=== PATIENT | female | born 1980 | race Caucasian/White ===

== ENCOUNTER 2018-01-06 22:40 | Emergency (ER) | payer BC ==
[2018-01-07 00:42] LABS: Absolute Lymphocytes (CBC) 2.1 K/uL (0.7-4.9); Absolute Monocytes 0.5 K/uL (0.1-1.3); Absolute Neutrophil 4.2 K/uL (1.8-8.0); Basophils % 0.9 % (0-1.3); Eosinophils % 3.1 % (0-4.4); Hematocrit 37.3 % (36.0-45.0); Lymphocytes % 29.6 % (15.3-44.8); MCH 24.3 pg (27.0-35.0); MCV 74.6 fL (80-100); MPV 8.3 fL (7.6-11.3); Monocytes % 6.7 % (3.3-12.3); RBC Red Blood Cell Count 4.99 M/uL (3.86-4.86)
[2018-01-07 00:55] LABS: Potassium 3.6 mEq/L (3.6-5.0)
[2018-01-07 00:58] LABS: Albumin 4.5 g/dL (3.2-5.5); Bilirubin Total 0.5 mg/dL (0.3-1.2); Protein, Total 7.8 g/dL (6.0-8.3)
[2018-01-07] MEDS ORDERED: ONDANSETRON 4 MG/2 ML VIAL ONE (01:18)
[2018-01-07] MEDS ORDERED: KETOROLAC 30 MG/ML INJ ONE (01:18)
[2018-01-07] MEDS ORDERED: NA CHLORIDE 0.9% 1,000 ML ONE (01:18)
[2018-01-07 01:19] LABS: Barbiturates NEGATIVE; Benzodiazepines NEGATIVE; Cocaine NEGATIVE; METHAMPHETAM NEGATIVE; Opiates NEGATIVE; Phencyclidine NEGATIVE; THC Cannibis NEGATIVE
[2018-01-07] MEDS ORDERED: CEFTRIAXONE/SWI 1gm 1 GM/10 ML SYR ONE (02:29)
--- NOTE | 2018-01-07 02:32 | EDPHYS ---
Physician Documentation [facility] Name: Alexandra Del Valle Age: 37 yrs Sex: Female : 1980 Arrival Date: 01/06/2018 Time: 22:41 Bed 17 Private MD: ED Physician Will Casillas HPI: 01/07 00:14 This 37 yrs old Female presents to ER via Ambulatory with complaints of dee Headache < 24hrs Old, Nausea. 00:14 The patient complains of pain to the forehead, left eye and left scientologist. The patient dee describes the headache as constant. Onset: The symptoms/episode began/occurred 1 day(s) ago. Associated signs and symptoms: The patient has no apparent associated signs or symptoms. Severity of symptoms: At its worst the pain was moderate, in the emergency department the pain is unchanged. Headache History: The patient has had previous headaches and this one is similar to previous episodes. The symptoms are alleviated by Darkened room, quiet, remaining still, the symptoms are aggravated by lights, movement, noise, stress. The patient has experienced similar episodes in the past, several times. 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 - Social history:: Smoking status: Patient/guardian denies using tobacco, Patient/guardian denies using alcohol, street drugs. - Family history:: not pertinent. ROS: 01/07 00:14 Constitutional: Negative for fever, chills, and weight loss, Eyes: Negative for injury, dee pain, redness, and discharge, ENT: Negative for injury, pain, and discharge, Neck: Negative for injury, pain, and swelling, Cardiovascular: Negative for chest pain, palpitations, and edema, Respiratory: Negative for shortness of breath, cough, wheezing, and pleuritic chest pain, Abdomen/GI: Negative for abdominal pain, nausea, vomiting, diarrhea, and constipation, Back: Negative for injury and pain, : Negative for injury, bleeding, discharge, and swelling, MS/Extremity: Negative for injury and deformity, Skin: Negative for injury, rash, and discoloration, Psych: Negative for depression, anxiety, suicide ideation, homicidal ideation, and hallucinations, Allergy/Immunology: Negative for hives, rash, and allergies, Endocrine: Negative for neck swelling, polydipsia, polyuria, polyphagia, and marked weight changes, Hematologic/Lymphatic: Negative for swollen nodes, abnormal bleeding, and unusual bruising. Neuro: Positive for headache, of the forehead and left eye. Exam: 00:14 Constitutional: This is a well developed, well nourished patient who is awake, alert, dee and in no acute distress. Head/Face: Normocephalic, atraumatic. Eyes: Pupils equal round and reactive to light, extra-ocular motions intact. Lids and lashes normal. Conjunctiva and sclera are non-icteric and not injected. Cornea within normal limits. Periorbital areas with no swelling, redness, or edema. ENT: Nares patent. No nasal discharge, no septal abnormalities noted. Tympanic membranes are normal and external auditory canals are clear. Oropharynx with no redness, swelling, or masses, exudates, or evidence of obstruction, uvula midline. Mucous membranes moist. Neck: Trachea midline, no thyromegaly or masses palpated, and no cervical lymphadenopathy. Supple, full range of motion without nuchal rigidity, or vertebral point tenderness. No Meningismus. Chest/axilla: Normal chest wall appearance and motion. Nontender with no deformity. No lesions are appreciated. Cardiovascular: Regular rate and rhythm with a normal S1 and S2. No gallops, murmurs, or rubs. Normal PMI, no JVD. No pulse deficits. Respiratory: Lungs have equal breath sounds bilaterally, clear to auscultation and percussion. No rales, rhonchi or wheezes noted. No increased work of breathing, no retractions or nasal flaring. Abdomen/GI: Soft, non-tender, with normal bowel sounds. No distension or tympany. No guarding or rebound. No evidence of tenderness throughout. Back: No spinal tenderness. No costovertebral tenderness. Full range of motion. Female : Normal external genitalia. Skin: Warm, dry with normal turgor. Normal color with no rashes, no lesions, and no evidence of cellulitis. MS/ Extremity: Pulses equal, no cyanosis. Neurovascular intact. Full, normal range of motion. Psych: Awake, alert, with orientation to person, place and time. Behavior, mood, and affect are within normal limits. 00:14 Neuro: Orientation: is normal, appropriate for stated age, no acute changes, Mentation: is normal, appropriate for stated age, no acute changes, Memory: is normal, appropriate for stated age, no acute changes, Cranial nerves: grossly normal, is grossly normal based on the patient's age, no acute changes, Cerebellar function: is grossly normal, is grossly normal based on the patient's age, no acute changes, Motor: is normal, moves all fours, Gait: not tested. Deep tendon reflexes are 2+ (normal) in the bilateral brachioradialis, bicep, tricep and patellar and Achilles tendons, seizure activity, is not displayed by the patient. Vital Signs: 01/06 23:00 BP 180 / 107; Pulse 78; Resp 18 S; Temp 98(O); Pulse Ox 100% on R/A; Weight 121.56 kg bb (R); Height 5 ft. 10 in. (177.80 cm) (R); Pain 8/10; 23:57 BP 179 / 140; Pulse 83; Resp 18; Pulse Ox 99% on R/A; mt 03 01:04 BP 152 / 96; Pulse 80; Resp 18; Pulse Ox 98% on R/A; mt 01:48 BP 137 / 96; Pulse 62; Resp 17 S; Pulse Ox 97% on R/A; Pain 6/10; jd3 01/06 23:00 Body Mass Index 38.45 (121.56 kg, 177.80 cm) bb MDM: 01/06 23:14 Patient medically screened. [facility] 01/07 02:32 Data reviewed: vital signs, nurses notes, lab test result(s), radiologic studies, CT dee scan. 01/07 00:14 Order name: CBC with Diff [facility] 01/07 00:14 Order name: Comprehensive Metabolic Panel [facility] 01/07 00:14 Order name: UDS [facility] 01/07 00:45 Order name: CBC with Automated Diff; Complete Time: 01:59 EDMS 01/07 00:46 Order name: Urine Dipstick--Ancillary (enter results) rg2 01/07 00:46 Order name: Urine --Ancillary (enter results) rg2 01/07 00:14 Order name: CT Head Brain wo Cont [facility] 01/07 00:55 Order name: Comprehensive Metabolic Panel; Complete Time: 01:59 EDMS 01/07 01:19 Order name: Urine Drug Screen; Complete Time: 01:59 EDMS 01/07 02:01 Order name: Urine Culture [facility] 01/07 00:14 Order name: Urine Dipstick-Ancillary (obtain specimen); Complete Time: 00:17 [facility] 01/07 00:14 Order name: Urine Test (obtain specimen); Complete Time: 00:17 [facility] 01/07 00:14 Order name: Oxygen; Complete Time: 00:17 [facility] Administered Medications: 00:57 Not Given (med not available): fentaNYL (PF) 50 mcg IVP once aa1 01:05 Drug: NS 0.9% 1000 ml Route: IV; Rate: 1 bolus; Site: right antecubital; aa1 03:07 Follow up: Response: No adverse reaction; IV Status: Completed infusion; IV Intake: jd3 1000ml 01:05 Drug: TORadol 30 mg Route: IVP; Site: right antecubital; aa1 01:38 Follow up: Response: No adverse reaction jd3 01:05 Drug: Zofran 4 mg Route: IVP; Site: right antecubital; aa1 01:38 Follow up: Response: No adverse reaction [facility] 02:18 Drug: Rocephin - (cefTRIAXone) 1 grams Route: IVPB; Infused Over: 30 mins; Site: right jd3 antecubital; 03:07 Follow up: Response: No adverse reaction; IV Status: Completed infusion j Disposition: 01/07/18 02:31 Discharged to Home. Impression: Headache, Vomiting, Migraine, Urinary tract infection, site not specified. - Condition is Stable. - Discharge Instructions: General Headache Without Cause, Migraine Headache, Nausea and Vomiting, Urinary Tract Infection, Nausea and Vomiting, [id number], General Headache Without Cause, [id number]. - Prescriptions for Fioricet with Codeine 50- 325-40-30 mg Oral capsule - take 1 capsule by ORAL route every 4 hours as needed not to exceed 6 capsules per 24hrs; 24 capsule. promethazine 25 mg Oral Tablet - take 1 tablet by ORAL route every 6 hours As needed; 20 tablet. Cipro 250 mg Oral Tablet - take 1 tablet by ORAL route every 12 hours; 14 tablet. - Medication Reconciliation Form, Thank You Letter, Antibiotic Education, Prescription Opioid Use form. - Follow up: Private Physician; When: 2 - 3 days; Reason: Recheck today's complaints, Continuance of care, Re-evaluation by your physician. - Problem is new. - Symptoms have improved. Signatures: Dispatcher [employer] EDMS Elvie Simon RN RN aa1 Will Casillas MD MD cha Ballard, Brenda RN RN bb Isidro Romero RN RN jd3
--- NOTE | 2018-01-07 02:32 | ER ---
Nurse's Notes [facility] Name: Alexandra Del Valle Age: 37 yrs Sex: Female : 1980 Arrival Date: 01/06/2018 Time: 22:41 Bed 17 Private MD: Diagnosis: Headache;Vomiting;Migraine;Urinary tract infection, site not specified Presentation: 01/06 22:58 Presenting complaint: Patient states: she has been having a migraine for 15 hours she bb is photophobic with nausea and vomiting states she fell about 30 mins ago. Transition of care: patient was not received from another setting of care. Onset of symptoms was January 06, 2018. Care prior to arrival: None. 22:58 Method Of Arrival: Ambulatory bb 22:58 Acuity: AMANDA 4 bb Triage Assessment: 01/07 03:06 Pain: Pain began suddenly, Also complains of no other associated symptoms. jd3 03:06 Headache History: The patient has had previous headaches and this one is similar to jd3 previous episodes. 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 - Social history:: Smoking status: Patient/guardian denies using tobacco, Patient/guardian denies using alcohol, street drugs. - Family history:: not pertinent. Screenin:01 Abuse screen: Denies threats or abuse. Nutritional screening: No deficits noted. jd3 Tuberculosis screening: No symptoms or risk factors identified. Fall Risk None identified. Assessment: 23:00 General: Appears in no apparent distress. uncomfortable, Behavior is calm, cooperative, jd3 appropriate for age. Pain: Complains of pain in head Pain currently is 8 out of 10 on a pain scale. Quality of pain is described as aching, pressure. Neuro: Level of Consciousness is awake, alert, obeys commands, Oriented to person, place, time, situation. Cardiovascular: Heart tones S1 S2 present Capillary refill < 3 seconds Patient's skin is warm and dry. Respiratory: Airway is patent Respiratory effort is even, unlabored, Respiratory pattern is regular, symmetrical, Breath sounds are clear bilaterally. GI: Abdomen is round Bowel sounds present X 4 quads. Abd is soft and non tender X 4 quads. Reports nausea. : No signs and/or symptoms were reported regarding the genitourinary system. EENT: No signs and/or symptoms were reported regarding the EENT system. Derm: Skin is intact, Skin is dry, Skin is normal, Skin temperature is warm. Musculoskeletal: Circulation, motion, and sensation intact. Range of motion: intact in all extremities. 01/07 00:00 Reassessment: Patient appears in no apparent distress at this time. Patient and/or jd3 family updated on plan of care and expected duration. Pain level reassessed. Patient is alert, oriented x 3, equal unlabored respirations, skin warm/dry/pink. 01:00 Reassessment: Patient appears in no apparent distress at this time. Patient and/or jd3 family updated on plan of care and expected duration. Pain level reassessed. Patient is alert, oriented x 3, equal unlabored respirations, skin warm/dry/pink. 01:50 Reassessment: Patient appears in no apparent distress at this time. Patient and/or jd3 family updated on plan of care and expected duration. Pain level reassessed. Patient is alert, oriented x 3, equal unlabored respirations, skin warm/dry/pink. 03:05 Reassessment: Patient appears in no apparent distress at this time. Patient and/or jd3 family updated on plan of care and expected duration. Pain level reassessed. Patient is alert, oriented x 3, equal unlabored respirations, skin warm/dry/pink. pt reported understanding of discharge instructions, even and steady gait noted upon discharge Patient states feeling better. Vital Signs: 01/06 23:00 BP 180 / 107; Pulse 78; Resp 18 S; Temp 98(O); Pulse Ox 100% on R/A; Weight 121.56 kg bb (R); Height 5 ft. 10 in. (177.80 cm) (R); Pain 8/10; 23:57 BP 179 / 140; Pulse 83; Resp 18; Pulse Ox 99% on R/A; mt 01/07 01:04 BP 152 / 96; Pulse 80; Resp 18; Pulse Ox 98% on R/A; mt 01:48 BP 137 / 96; Pulse 62; Resp 17 S; Pulse Ox 97% on R/A; Pain 6/10; jd3 01/06 23:00 Body Mass Index 38.45 (121.56 kg, 177.80 cm) ED Course: 01/06 22:41 Patient arrived in ED. am2 22:59 Triage completed. 23:00 Isidro Romero, RN is Primary Nurse. jd3 23:00 Arm band placed on Patient placed in an exam room, on a stretcher, on pulse oximetry. 23:02 Patient has correct armband on for positive identification. Bed in low position. Call jd3 light in reach. Side rails up X2. 23:13 Will Casillas MD is Attending Physician. [facility] 01/07 00:17 Urine collected: clean catch specimen, clear. Inserted saline lock: 20 gauge in right mt antecubital area, using aseptic technique. Blood collected. 00:35 [facility] moved to [facility] via [facility]. 00:35 CT completed. Patient tolerated procedure well. 00:47 [facility] moved back from [facility]. 03:05 No provider procedures requiring assistance completed. IV discontinued, intact, jd3 bleeding controlled, No redness/swelling at site. Pressure dressing applied. Administered Medications: 00:57 Not Given (med not available): fentaNYL (PF) 50 mcg IVP once aa1 01:05 Drug: NS 0.9% 1000 ml Route: IV; Rate: 1 bolus; Site: right antecubital; aa1 03:07 Follow up: Response: No adverse reaction; IV Status: Completed infusion; IV Intake: jd3 1000ml 01:05 Drug: TORadol 30 mg Route: IVP; Site: right antecubital; aa1 01:38 Follow up: Response: No adverse reaction jd3 01:05 Drug: Zofran 4 mg Route: IVP; Site: right antecubital; aa1 01:38 Follow up: Response: No adverse reaction jd3 02:18 Drug: Rocephin - (cefTRIAXone) 1 grams Route: IVPB; Infused Over: 30 mins; Site: right jd3 antecubital; 03:07 Follow up: Response: No adverse reaction; IV Status: Completed infusion jd3 Intake: 03:07 IV: 1000ml; Total: 1000ml. jd3 Outcome: 02:31 Discharge ordered by MD. price 03:06 Discharged to home ambulatory, with friend. jd3 03:06 Condition: stable 03:06 Discharge instructions given to patient, Instructed on discharge instructions, follow up and referral plans. medication usage, Demonstrated understanding of instructions, follow-up care, medications, Prescriptions given X 3. 03:07 Patient left the ED. jd3 Signatures: Elvie Simon, RN RN [email or web address] Will Casillas MD MD cha Hagler, Oneyda León, RN RN Polina Almaraz Moriah mt Davies, Jonathon, RN RN jd3
[2018-01-07 03:19] VITALS: TEMP 98
[2018-01-07 03:22] VITALS: BP 137/96; O2SAT 97
[2018-01-07 04:19] LABS: Urine Blood 2+ (NEG); Urine Glucose NEGATIVE (NEG); Urine Protein NEGATIVE (NEG); Urine Specific Gravity 1.025 (1.005-1.030)
--- NOTE | 2018-01-07 08:56 | RAD REPORT ---
EXAM DESCRIPTION: CT - Head Brain Wo Cont - 01/07/2018 5:35 am CLINICAL HISTORY: Fall, head injury COMPARISON: 04/04/2013 TECHNIQUE: All CT scans are performed using dose optimization technique as appropriate and may inclu de automated exposure control or mA/KV adjustment according to patient size. FINDINGS: No intracranial hemorrhage, hydrocephalus or extra-axial fluid collection.No areas of brai n edema or evidence of midline shift. The paranasal sinuses and mastoids are clear. The calvarium is intact. IMPRESSION: No acute intracranial abnormality.
== END 2018-01-07 03:07 | disposition home or self-care (01) ==
LOC: ER 22:40
DX: G43.909 Migraine, unspecified, not intractable, without status migrainosus (principal); N39.0 Urinary tract infection, site not specified; R11.10 Vomiting, unspecified
CPT/HCPCS: 36415; 70450; 80053; 80307; 81003; 81025; 85025; 96361; 96365; 96375; 99284; J0696; J2405; J7030

== ENCOUNTER 2019-07-22 23:45 | Emergency (ER) | payer BC, SELFPAY ==
[2019-07-23] MEDS ORDERED: IBUPROFEN 400 MG TAB ONE (00:38)
[2019-07-23] MEDS ORDERED: IBUPROFEN 200 MG TAB PO ONE (00:38)
--- NOTE | 2019-07-23 00:58 | EDPHYS ---
Physician Documentation [facility] Name: Alexandra Del Valle Age: 39 yrs Sex: Female : 1980 Arrival Date: 07/22/2019 Time: 23:46 Bed 10 Private MD: ED Physician Aneudy Mcguire HPI: 07/23 00:30 This 39 yrs old Female presents to ER via Ambulatory with complaints of Fall pkl Injury, Ankle Injury. 00:30 The patient presents with an injury, pain, that is acute. The complaints affect the pkl left ankle. Onset: The symptoms/episode began/occurred just prior to arrival. Context: resulted from the patient falling, while walking. 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 - Social history:: Smoking status: Patient/guardian denies using alcohol, street drugs. - Ebola Screening: : Patient negative for fever greater than or equal to 101.5 degrees Fahrenheit, and additional compatible Ebola Virus Disease symptoms Patient denies exposure to infectious person Patient denies travel to an Ebola-affected area in the 21 days before illness onset. ROS: 00:30 Eyes: Negative for injury, pain, redness, and discharge, ENT: Negative for injury, pkl pain, and discharge, Neck: Negative for injury, pain, and swelling, Cardiovascular: Negative for chest pain, palpitations, and edema, Respiratory: Negative for shortness of breath, cough, wheezing, and pleuritic chest pain, Abdomen/GI: Negative for abdominal pain, nausea, vomiting, diarrhea, and constipation, Back: Negative for injury and pain, : Negative for injury, bleeding, discharge, and swelling, Skin: Negative for injury, rash, and discoloration, Neuro: Negative for headache, weakness, numbness, tingling, and seizure. 00:30 MS/extremity: Positive for injury or acute deformity, pain, of the left ankle. Exam: 00:30 Head/Face: Normocephalic, atraumatic. Eyes: Pupils equal round and reactive to light, pkl extra-ocular motions intact. Lids and lashes normal. Conjunctiva and sclera are non-icteric and not injected. Cornea within normal limits. Periorbital areas with no swelling, redness, or edema. ENT: Nares patent. No nasal discharge, no septal abnormalities noted. Tympanic membranes are normal and external auditory canals are clear. Oropharynx with no redness, swelling, or masses, exudates, or evidence of obstruction, uvula midline. Mucous membranes moist. Neck: Trachea midline, no thyromegaly or masses palpated, and no cervical lymphadenopathy. Supple, full range of motion without nuchal rigidity, or vertebral point tenderness. No Meningismus. Chest/axilla: Normal chest wall appearance and motion. Nontender with no deformity. No lesions are appreciated. Cardiovascular: Regular rate and rhythm with a normal S1 and S2. No gallops, murmurs, or rubs. Normal PMI, no JVD. No pulse deficits. Respiratory: Lungs have equal breath sounds bilaterally, clear to auscultation and percussion. No rales, rhonchi or wheezes noted. No increased work of breathing, no retractions or nasal flaring. Abdomen/GI: Soft, non-tender, with normal bowel sounds. No distension or tympany. No guarding or rebound. No evidence of tenderness throughout. Back: No spinal tenderness. No costovertebral tenderness. Full range of motion. Skin: Warm, dry with normal turgor. Normal color with no rashes, no lesions, and no evidence of cellulitis. Neuro: Awake and alert, GCS 15, oriented to person, place, time, and situation. Cranial nerves II-XII grossly intact. Motor strength 5/5 in all extremities. Sensory grossly intact. Cerebellar exam normal. Normal gait. 00:30 Musculoskeletal/extremity: Extremities: grossly normal except: noted in the left ankle: pain, tenderness. Vital Signs: 00:20 BP 160 / 98; Pulse 80; Resp 20; Temp 98.4(O); Pulse Ox 100% on R/A; Weight 113.4 kg fc (R); Height 5 ft. 10 in. (177.80 cm) (R); Pain 6/10; 00:20 Body Mass Index 35.87 (113.40 kg, 177.80 cm) MDM: 00:26 Patient medically screened. pkl 00:56 Data reviewed: vital signs, nurses notes, radiologic studies, plain films. pkl 07/23 00:25 Order name: Ankle Left 3 View XRAY fc 07/23 00:56 Order name: Splint - Ankle: Posterior; Complete Time: 01:23 pkl Administered Medications: 00:39 Drug: Motrin 600 mg Route: PO; fc Disposition: 07/23/19 00:57 Discharged to Home. Impression: Sprain left ankle. - Condition is Stable. - Prescriptions for Tylenol- Codeine #3 300-30 mg Oral Tablet - take 1 tablet by ORAL route every 8 hours As needed; 20 tablet. - Medication Reconciliation Form, Thank You Letter, Antibiotic Education, Prescription Opioid Use, Work release form form. - Follow up: Private Physician; When: 2 - 3 days; Reason: Re-evaluation by your physician. - Problem is new. - Symptoms have improved. Signatures: Dispatcher [employer] EDAneudy Ahumada MD MD pkKecia Holman RN RN fc Corrections: (The following items were deleted from the chart) 01:36 00:57 07/23/2019 00:57 Discharged to Home. Impression: Sprain left ankle. Condition is fc Stable. Forms are Medication Reconciliation Form, Thank You Letter, Antibiotic Education, Prescription Opioid Use. Follow up: Private Physician; When: 2 - 3 days; Reason: Re-evaluation by your physician. Problem is new. Symptoms have improved. pkl
--- NOTE | 2019-07-23 00:58 | ER ---
Nurse's Notes [facility] Name: Alexandra Del Valle Age: 39 yrs Sex: Female : 1980 Arrival Date: 07/22/2019 Time: 23:46 Bed 10 Private MD: Diagnosis: Sprain left ankle Presentation: 07/23 00:17 Presenting complaint: Patient states: that she was walking and rolled her left ankle. fc When she got up had severe pain. Transition of care: patient was not received from another setting of care. Onset of symptoms was July 22, 2019 at 23:20. Risk Assessment: Do you want to hurt yourself or someone else? Patient reports no desire to harm self or others. Initial Sepsis Screen: Does the patient meet any 2 criteria? No. Patient's initial sepsis screen is negative. Does the patient have a suspected source of infection? No. Patient's initial sepsis screen is negative. Care prior to arrival: None. 00:17 Method Of Arrival: Ambulatory fc 00:17 Acuity: AMANDA 4 fc Triage Assessment: 00:20 General: Appears uncomfortable, Behavior is calm, cooperative, appropriate for age. fc Pain: Complains of pain in left ankle Pain currently is 6 out of 10 on a pain scale. Quality of pain is described as aching, dull, throbbing, Pain began 1 hour ago. Is continuous, Aggravated by increased activity, repositioning, weight bearing. EENT: No deficits noted. Neuro: Level of Consciousness is awake, alert, obeys commands, Oriented to person, place, time, situation, Appropriate for age. Cardiovascular: No deficits noted. Respiratory: No deficits noted. GI: No deficits noted. : No deficits noted. Derm: Skin is pink, warm \T\ dry. Musculoskeletal: Circulation, motion, and sensation intact. Capillary refill < 3 seconds, Range of motion: limited in left ankle Reports pain in left ankle. 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 - Social history:: Smoking status: Patient/guardian denies using alcohol, street drugs. - Ebola Screening: : Patient negative for fever greater than or equal to 101.5 degrees Fahrenheit, and additional compatible Ebola Virus Disease symptoms Patient denies exposure to infectious person Patient denies travel to an Ebola-affected area in the 21 days before illness onset. Screenin:23 Abuse screen: Denies threats or abuse. Nutritional screening: No deficits noted. fc Tuberculosis screening: No symptoms or risk factors identified. Fall Risk None identified. Assessment: 00:23 Reassessment: No changes from previously documented assessment. Patient and/or family fc updated on plan of care and expected duration. Pain level reassessed. Patient is alert, oriented x 3, equal unlabored respirations, skin warm/dry/pink. see triage assessment. 00:37 Reassessment: Dr Mcguire in to see and examine pt. fc 01:15 Reassessment: No changes from previously documented assessment. Patient and/or family fc updated on plan of care and expected duration. Pain level reassessed. Patient is alert, oriented x 3, equal unlabored respirations, skin warm/dry/pink. Patient states feeling better. Vital Signs: 00:20 BP 160 / 98; Pulse 80; Resp 20; Temp 98.4(O); Pulse Ox 100% on R/A; Weight 113.4 kg fc (R); Height 5 ft. 10 in. (177.80 cm) (R); Pain 6/10; 00:20 Body Mass Index 35.87 (113.40 kg, 177.80 cm) fc ED Course: 07/22 23:46 Patient arrived in ED. ds1 07/23 00:18 Triage completed. fc 00:23 Arm band placed on Patient placed in an exam room, on a stretcher. fc 00:23 Patient has correct armband on for positive identification. Bed in low position. Call fc light in reach. 00:23 No provider procedures requiring assistance completed. Patient did not have IV access fc during this emergency room visit. 00:26 Aneudy Mcguire MD is Attending Physician. pkl 00:45 X-ray completed. Portable x-ray completed in exam room. Patient tolerated procedure kw well. 00:47 Ankle Left 3 View XRAY In Process Unspecified. EDMS 01:23 Orthoglass splint: Posterior short lleg splint applied on left leg. oe Administered Medications: 00:39 Drug: Motrin 600 mg Route: PO; Outcome: 00:57 Discharge ordered by . primitivo 01:35 Discharged to home via wheelchair, with family. 01:35 Condition: good 01:35 Discharge instructions given to patient, Instructed on discharge instructions, follow up and referral plans. medication usage, crutch walking, Demonstrated understanding of instructions, follow-up care, medications, crutch walking, splint care, Prescriptions given X 1. 01:36 Patient left the ED. fc Signatures: Dispatcher [employer] EDAneudy Ahumada MD MD pkl Chretien, Felicia, RN RN Carmen Cowan dsMyrna Lewis [place] oe
[2019-07-23 02:37] VITALS: BP 160/98; TEMP 98.4; O2SAT 100
--- NOTE | 2019-07-23 09:31 | RAD REPORT ---
EXAM DESCRIPTION: RAD - Ankle Left 3 View -07/23/2019 12:46 am CLINICAL HISTORY: Left ankle pain status post injury FINDINGS: Soft tissue swelling laterally Two tiny bony/calcific densities lateral to the talus more likely to be chronic than acute. However, clinical correlation is needed to see if the patient has point tenderness in this region to suggest a n acute process Otherwise, no fracture or dislocation noted
== END 2019-07-23 01:36 | disposition home or self-care (01) ==
LOC: ER 23:45
PROC: 2W3RX1Z Immobilization of Left Lower Leg using Splint (ICD-10-PCS; principal; 2019-07-23)
DX: S93.402A Sprain of unspecified ligament of left ankle, initial encounter (principal); X50.1XXA Overexertion from prolonged static or awkward postures, initial encounter; Y93.01 Activity, walking, marching and hiking; Y92.9 Unspecified place or not applicable
CPT/HCPCS: 99284

== ENCOUNTER 2020-08-18 04:12 | Emergency (ER) | payer SELFPAY ==
[2020-08-18] MEDS ORDERED: PROMETHAZINE INJ 25 MG/ML AMP ONE (04:48)
[2020-08-18] MEDS ORDERED: MEPERIDINE HCL 25 MG/ML SYR ONE (04:48)
[2020-08-18] MEDS ORDERED: NA CHLORIDE 0.9% 1,000 ML ONE (04:49)
--- NOTE | 2020-08-18 05:42 | EDPHYS ---
Physician Documentation [facility] Name: Alexandra Del Valle Age: 40 yrs Sex: Female : 1980 Arrival Date: 08/18/2020 Time: 04:14 Bed 8 Private MD: ED Physician Syed Moran HPI: 08/18 04:44 This 40 yrs old Female presents to ER via Wheelchair with complaints of rn Headache. 04:44 The patient complains of pain to the top of head and forehead. The patient describes rn the headache as aching. Onset: The symptoms/episode began/occurred today. Severity of symptoms: At its worst the pain was moderate, "similar to past headaches". Headache History: The patient has had previous headaches and this one is similar to previous episodes. The symptoms are alleviated by nothing. the symptoms are aggravated by lights, movement, noise. The patient has experienced similar episodes in the past. Reports history of migraines, has had other migraines as bad as today, no fever, no trauma. . 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 - Social history:: Smoking status: Patient denies any tobacco usage or history of. - Family history:: not pertinent. - Hospitalizations: : No recent hospitalization is reported. ROS: 04:44 Constitutional: Negative for fever, chills, and weight loss, Eyes: Negative for injury, rn pain, redness, and discharge, Neck: Negative for injury, pain, and swelling, Cardiovascular: Negative for chest pain, palpitations, and edema, Respiratory: Negative for shortness of breath, cough, wheezing, and pleuritic chest pain, Abdomen/GI: + nausea MS/Extremity: Negative for injury and deformity, Skin: Negative for injury, rash, and discoloration, Neuro: Negative for weakness, numbness, tingling, and seizure. Exam: 04:44 Constitutional: This is a well developed, well nourished patient who is awake, alert rn Head/Face: Normocephalic, atraumatic. Eyes: Pupils equal round and reactive to light, extra-ocular motions intact. Cardiovascular: Regular rate and rhythm. No pulse deficits. Respiratory: Speaking full sentences. No increased work of breathing, no retractions or nasal flaring. Skin: Warm, dry MS/ Extremity: Pulses equal, no cyanosis. Neuro: Awake and alert, GCS 15, oriented to person, place, time, and situation. Cranial nerves II-XII grossly intact. Motor strength 5/5 in all extremities. Sensory grossly intact. Cerebellar exam normal. Vital Signs: 04:30 BP 163 / 118; Pulse 88; Resp 18; Temp 97.6(TE); Pulse Ox 98% on R/A; Weight 104.33 kg; lp1 Height 5 ft. 10 in. (177.80 cm); Pain 10/10; 04:59 BP 161 / 103; Pulse 81; Resp 17; Pulse Ox 99% ; rv 05:36 BP 143 / 94; Pulse 62; Resp 15; Pulse Ox 99% on R/A; rv 04:30 Body Mass Index 33.00 (104.33 kg, 177.80 cm) lp1 Selma Coma Score: 05:39 Eye Response: spontaneous(4). Verbal Response: oriented(5). Motor Response: obeys rn commands(6). Total: 15. MDM: 04:21 Patient medically screened. rn 05:39 Differential diagnosis: hypertensive headache, migraine, tension headache, vasomotor rn headache. Data reviewed: vital signs, nurses notes, radiologic studies, CT scan, and as a result, I will discharge patient. Counseling: I had a detailed discussion with the patient and/or guardian regarding: the historical points, exam findings, and any diagnostic results supporting the discharge/admit diagnosis, radiology results, the need for outpatient follow up, to return to the emergency department if symptoms worsen or persist or if there are any questions or concerns that arise at home. Response to treatment: the patient's symptoms have markedly improved after treatment, and as a result, I will discharge patient. Special discussion: I discussed with the patient/guardian in detail that at this point there is no indication for admission to the hospital. It is understood, however, that if the symptoms persist or worsen the patient needs to return immediately for re-evaluation. Based on the history and exam findings, there is no indication for further emergent testing or inpatient evaluation. I discussed with the patient/guardian the need to see the neurologist for further evaluation of the symptoms. ED course: Pt improved, minimal headache, stable vitals, will dc home with a few tylenol with codeine per her request. . 08/18 04:29 Order name: CT Head Brain wo Cont rn 08/18 04:30 Order name: IV Start; Complete Time: 04:59 rn Administered Medications: 04:59 Drug: Phenergan 12.5 mg Route: IVP; Site: right antecubital; lp1 05:51 Follow up: Response: No adverse reaction rv 04:59 Drug: NS 0.9% 1000 ml Route: IV; Rate: 1000 ml; Site: right antecubital; lp1 05:51 Follow up: IV Status: Completed infusion; IV Intake: 800ml rv 04:59 Drug: Demerol 25 mg Route: IVP; Site: right antecubital; lp1 05:51 Follow up: Response: No adverse reaction; Marked relief of symptoms; Pain is decreased; rv RASS: Alert and Calm (0) Disposition: 08/18/20 05:41 Discharged to Home. Impression: Migraine. - Condition is Stable. - Discharge Instructions: Migraine Headache. - Prescriptions for Tylenol- Codeine #3 300-30 mg Oral Tablet - take 1 tablet by ORAL route every 6 hours As needed; 10 tablet. promethazine 25 mg Oral Tablet - take 1 tablet by ORAL route every 6 hours As needed; 5 tablet. - Medication Reconciliation Form, Thank You Letter, Antibiotic Education, Prescription Opioid Use form. - Follow up: Private Physician; When: As needed; Reason: Recheck today's complaints, Re-evaluation by your physician. - Problem is an acute exacerbation. - Symptoms have improved. Signatures: Dispatcher [employer] EDMS Daniel Cordoba RN RN sg Syed Moran MD MD rn Pena, Laura, RN RN lp1 Denny Nuñez RN RN rv Corrections: (The following items were deleted from the chart) 04:54 04:44 Constitutional: This is a well developed, well nourished patient who is awake, rn alert Head/Face: Normocephalic, atraumatic. Skin: Warm, dry MS/ Extremity: Pulses equal, no cyanosis. Neuro: Awake and alert, GCS 15, oriented to person, place, time, and situation. Cranial nerves II-XII grossly intact. Motor strength 5/5 in all extremities. Sensory grossly intact. Cerebellar exam normal. rn 05:52 05:41 08/18/2020 05:41 Discharged to Home. Impression: Migraine. Condition is Stable. rv Forms are Medication Reconciliation Form, Thank You Letter, Antibiotic Education, Prescription Opioid Use. Follow up: Private Physician; When: As needed; Reason: Recheck today's complaints, Re-evaluation by your physician. Problem is an acute exacerbation. Symptoms have improved. rn
--- NOTE | 2020-08-18 05:42 | ER ---
Nurse's Notes [facility] Name: Alexandra Del Valle Age: 40 yrs Sex: Female : 1980 Arrival Date: 08/18/2020 Time: 04:14 Bed 8 Private MD: Diagnosis: Migraine Presentation: 08/18 04:25 Chief complaint: Patient states: I have a history of migraines and have been seen here sg before but those were like a pain of 5/10, this one is definitely worse than those, being a 10/10. It hurts so bad that I fell down this morning on carpet, denies pain from the fall for triage at this time, pt states she has nausea and vomiting x1 as well, denies Fever/Chills or any other symptoms at this time. Coronavirus screen: Client denies travel out of the [place] in the last 14 days. headache, nausea, vomiting. Client presents with at least one sign or symptom that may indicate coronavirus-19. Standard/surgical mask placed on the client. Ebola Screen: Patient negative for fever greater than or equal to 101.5 degrees Fahrenheit, and additional compatible Ebola Virus Disease symptoms Patient denies exposure to infectious person. Patient denies travel to an Ebola-affected area in the 21 days before illness onset. No symptoms or risks identified at this time. Initial Sepsis Screen: Does the patient meet any 2 criteria? No. Patient's initial sepsis screen is negative. Does the patient have a suspected source of infection? No. Patient's initial sepsis screen is negative. Risk Assessment: Do you want to hurt yourself or someone else? Patient reports no desire to harm self or others. Onset of symptoms was August 18, 2020. Care prior to arrival: None. Transition of care: patient was not received from another setting of care. 04:25 Method Of Arrival: Wheelchair 04:25 Acuity: AMANDA 3 sg Triage Assessment: 04:25 Headache History: The patient has had previous headaches and this one is different than sg previous episodes, and this one is more severe than previous episodes. General: Appears in no apparent distress. Behavior is calm, cooperative, appropriate for age. Pain: Pain currently is 10 out of 10 on a pain scale. Pain began gradually, 1 day ago. Also complains of nausea, inability to work. Neuro: Level of Consciousness is awake, alert, obeys commands, Oriented to person, place, time, situation, Speech is normal, Facial symmetry appears normal, Reports headache in entire frontal area, that is the "worst ever", photophobia in right eye and left eye. Cardiovascular: Patient's skin is warm and dry. Respiratory: Airway is patent Respiratory effort is even, unlabored, Respiratory pattern is regular, symmetrical. Derm: Skin is pink, warm \\T\\ dry. 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 - Social history:: Smoking status: Patient denies any tobacco usage or history of. - Family history:: not pertinent. - Hospitalizations: : No recent hospitalization is reported. Screenin:57 Abuse screen: Denies threats or abuse. Denies injuries from another. Nutritional rv screening: No deficits noted. Tuberculosis screening: No symptoms or risk factors identified. Fall Risk None identified. Assessment: 04:54 General: Appears uncomfortable, Behavior is calm, cooperative. Pain: Complains of pain rv in forehead and top of head. Neuro: Level of Consciousness is awake, alert, obeys commands, Oriented to person, place, time, situation, Reports headache frontal area, that is the "worst ever". Cardiovascular: Patient's skin is warm and dry. Respiratory: Airway is patent Respiratory effort is even, unlabored. Derm: No signs and/or symptoms reported regarding the dermatologic system. Skin is intact. 05:00 GI: Pt is actively vomiting bile. lp1 05:45 Reassessment: Patient is alert, oriented x 3, equal unlabored respirations, skin lp1 warm/dry/pink. Patient states feeling better. Patient states symptoms have improved. Vital Signs: 04:30 BP 163 / 118; Pulse 88; Resp 18; Temp 97.6(TE); Pulse Ox 98% on R/A; Weight 104.33 kg; lp1 Height 5 ft. 10 in. (177.80 cm); Pain 10/10; 04:59 BP 161 / 103; Pulse 81; Resp 17; Pulse Ox 99% ; rv 05:36 BP 143 / 94; Pulse 62; Resp 15; Pulse Ox 99% on R/A; rv 04:30 Body Mass Index 33.00 (104.33 kg, 177.80 cm) lp1 Glorai Coma Score: 05:39 Eye Response: spontaneous(4). Verbal Response: oriented(5). Motor Response: obeys rn commands(6). Total: 15. ED Course: 04:14 Patient arrived in ED. bp1 04:21 Syed Moran MD is Attending Physician. rn 04:25 Arm band placed on. sg 04:29 Triage completed. sg 04:36 Denny Nuñez RN is Primary Nurse. rv 04:59 Inserted saline lock: 20 gauge in right antecubital area, using aseptic technique. lp1 05:06 Patient has correct armband on for positive identification. Pulse ox on. NIBP on. rv 05:12 CT Head Brain wo Cont In Process Unspecified. EDMS 05:51 No provider procedures requiring assistance completed. IV discontinued, intact, rv bleeding controlled, No redness/swelling at site. Pressure dressing applied. Administered Medications: 04:59 Drug: Phenergan 12.5 mg Route: IVP; Site: right antecubital; lp1 05:51 Follow up: Response: No adverse reaction rv 04:59 Drug: NS 0.9% 1000 ml Route: IV; Rate: 1000 ml; Site: right antecubital; lp1 05:51 Follow up: IV Status: Completed infusion; IV Intake: 800ml rv 04:59 Drug: Demerol 25 mg Route: IVP; Site: right antecubital; lp1 05:51 Follow up: Response: No adverse reaction; Marked relief of symptoms; Pain is decreased; rv RASS: Alert and Calm (0) Intake: 05:51 IV: 800ml; Total: 800ml. rv Outcome: 05:41 Discharge ordered by . rn 05:51 Discharged to home ambulatory. rv 05:51 Condition: improved 05:51 Discharge instructions given to patient, Instructed on discharge instructions, follow up and referral plans. medication usage, Demonstrated understanding of instructions, follow-up care, medications, Prescriptions given X 2. 05:52 Patient left the ED. rv Signatures: Dispatcher [employer] EDMS Daniel Cordoba RN RN Syed Moran MD MD rn Pena, Laura, RN RN lp1 Denny Nuñez, RN RN rv [place], Sharlene bp1
[2020-08-18 06:02] VITALS: TEMP 97.6
[2020-08-18 06:08] VITALS: O2SAT 99
[2020-08-18 06:14] VITALS: BP 143/94
--- NOTE | 2020-08-18 20:12 | RAD REPORT ---
EXAM DESCRIPTION: CT - Head Brain Wo Cont - 08/18/2020 6:41 am CLINICAL HISTORY: HEADACHE COMPARISON: 01/07/2018 TECHNIQUE: Axial CT of the head obtained from the skull apex to the skull base without contrast. FINDINGS: No acute intracranial hemorrhage identified. No mass, mass effect, shift of the midline, a bnormal extra-axial fluid collection or CT evidence of acute ischemic change identified. The ventricu lar system is unremarkable. No acute abnormalities of the supratentorial white matter, basal gangli a, cerebellum, or brainstem. The visualized paranasal sinuses and the mastoid air cells are relatively well aerated. No skull fr acture identified. Visualized orbits and globes are unremarkable. IMPRESSION: 1. No acute intracranial abnormality identified. This exam was performed according to our departmental dose-optimization program, which includes autom ated exposure control, adjustment of the mA and/or kV according to patient size and/or use of iterati ve reconstruction technique. Electronically signed by: Nadeem Martinez 08/18/2020 5:29 AM CDT Due to temporary technical issues with the PACS/Fluency reporting system, reports are being signed by the in house radiologists without review as a courtesy to insure prompt reporting. The interpreting radiologist is fully responsible for the content of the report.
== END 2020-08-18 05:52 | disposition home or self-care (01) ==
LOC: ER 04:12
DX: G43.909 Migraine, unspecified, not intractable, without status migrainosus (principal); I10 Essential (primary) hypertension
CPT/HCPCS: 70450; 96361; 96374; 96375; 99284; J2175; J2550; J7030

== ENCOUNTER 2021-04-22 18:39 | Emergency (ER) | payer OTHER, SELFPAY ==
[2021-04-22 20:51] LABS: Urine Blood 3+ (Negative); Urine Glucose 1+ (Negative); Urine Protein 2+ (Negative)
[2021-04-22 21:10] LABS: Urine Bacteria <20 /HPF (<20); Urine RBC 20-50 /HPF (NONE SEEN)
[2021-04-22 21:11] LABS: Calcium Oxalate Crystals- Ur FEW (NONE SEEN); Urine Mucus LIGHT /HPF (NONE SEEN)
--- NOTE | 2021-04-22 21:33 | RAD REPORT ---
EXAM DESCRIPTION: CT - Stone Protocol - 04/22/2021 9:00 pm CLINICAL HISTORY: Flank pain. FLANK PAIN COMPARISON: CTSTONE PROTOCOL dated 12/13/2013 TECHNIQUE: Axial images were obtained without oral or IV contrast. Lack of contrast limits solid org an and vascular assessment. The [id number] spans the entirety of the system partially obscuring uppermost abdomen and lung bases. Coronal reformatted images were obtained and reviewed. All CT scans are performed using dose optimization technique as appropriate and may include automated exposure control or mA/KV adjustment according to patient size. FINDINGS: The lower lung brothers are clear. Imaged portions of the liver and spleen show no suspicious findings on non-contrast imaging. The panc reas and adrenal glands are normal. No pathologic lymphadenopathy in the abdomen or pelvis. No urinary tract stones or obstructive uropathy. No bowel obstruction, free air, free fluid or abscess. Normal appendix noted. No significant bony abnormality. IMPRESSION: No urinary tract stones or obstructive uropathy.
[2021-04-22 23:27] LABS: Urine Blood 3+ (Negative); Urine Glucose Trace (Negative); Urine Protein 3+ (Negative); Urine Specific Gravity 1.025 (1.005-1.030); Urine pH 5.5 (5.0-7.0)
[2021-04-23] MEDS ORDERED: CEFTRIAXONE 1000 MG/VIAL ONE (00:09)
[2021-04-23] MEDS ORDERED: WATER FOR INJ,STERILE 10 ML ONE (00:09)
[2021-04-23] MEDS ORDERED: IBUPROFEN 400 MG TAB ONE (00:09)
--- NOTE | 2021-04-23 00:15 | ER ---
Nurse's Notes [facility] Name: Alexandra Del Valle Age: 40 yrs Sex: Female : 1980 Arrival Date: 04/22/2021 Time: 18:42 Bed 15 Private MD: Diagnosis: Acute cystitis without hematuria-with pyelonephritis - left side Presentation: 04/22 20:13 Chief complaint: Patient states: UTI symptoms since last week, has low back pain iw radiating to left abd, also has urine frequency, also has hx of kidney stones. Coronavirus screen: At this time, the client does not indicate any symptoms associated with coronavirus-19. Ebola Screen: Patient negative for fever greater than or equal to 101.5 degrees Fahrenheit, and additional compatible Ebola Virus Disease symptoms Patient denies exposure to infectious person. Patient denies travel to an Ebola-affected area in the 21 days before illness onset. No symptoms or risks identified at this time. Initial Sepsis Screen: Does the patient meet any 2 criteria? No. Patient's initial sepsis screen is negative. Does the patient have a suspected source of infection? No. Patient's initial sepsis screen is negative. Risk Assessment: Do you want to hurt yourself or someone else? Patient reports no desire to harm self or others. Onset of symptoms was April 18, 2021. 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 - Social history:: Smoking status: Patient denies any tobacco usage or history of. - Family history:: not pertinent. Screenin/06 00:32 Abuse screen: Denies threats or abuse. Nutritional screening: No deficits noted. jb4 Tuberculosis screening: No symptoms or risk factors identified. Fall Risk None identified. Assessment: 00:32 General: Appears in no apparent distress. comfortable, Behavior is calm, cooperative, jb4 appropriate for age. Pain: Complains of pain in left low back Pain does not radiate. Neuro: Level of Consciousness is awake, alert, obeys commands, Oriented to person, place, time, situation. Cardiovascular: Patient's skin is warm and dry. Respiratory: Airway is patent Respiratory effort is even, unlabored, Respiratory pattern is regular, symmetrical. GI: No signs and/or symptoms were reported involving the gastrointestinal system. : Reports pain in left flank(s). EENT: No signs and/or symptoms were reported regarding the EENT system. Derm: Skin is intact, Skin is pink, warm \T\ dry. Musculoskeletal: Circulation, motion, and sensation intact. Range of motion: intact in all extremities. Vital Signs: 04/22 20:13 BP 158 / 98; Pulse 84; Resp 16; Temp 98.5; Pulse Ox 100% on R/A; Weight 105.69 kg; iw Height 5 ft. 10 in. (177.80 cm); 20:13 Body Mass Index 33.43 (105.69 kg, 177.80 cm) iw ED Course: 18:42 Patient arrived in ED. rg4 20:15 Triage completed. iw 20:16 Arm band placed on. iw 20:59 CT Stone Protocol In Process Unspecified. EDMS 23:17 Beto Fu MD is Attending Physician. ma2 04/23 00:30 Oneyda Servin RN is Primary Nurse. bb 00:32 Patient has correct armband on for positive identification. Bed in low position. Call jb4 light in reach. Side rails up X 1. 00:32 No provider procedures requiring assistance completed. Patient did not have IV access jb4 during this emergency room visit. Administered Medications: 00:19 Drug: Motrin (ibuprofen) 400 mg Route: PO; jb4 00:35 Follow up: Response: No adverse reaction jb4 00:19 Drug: Rocephin (cefTRIAXone) 1000 mg Route: IM; Site: left gluteus; jb4 00:34 Follow up: Response: No adverse reaction jb4 Outcome: 00:14 Discharge ordered by . ma2 00:32 Discharged to home ambulatory. jb4 00:32 Condition: stable 00:32 Discharge instructions given to patient, Instructed on discharge instructions, follow up and referral plans. medication usage, Demonstrated understanding of instructions, follow-up care, medications, Prescriptions given X 2. 00:35 Patient left the ED. jb4 Addendum: 04/26/2021 10:31 Addendum: Culture Results: Positive urine culture. No further action required. Bacteria s s sensitive to prescribed antibiotic. Signatures: Dispatcher [employer] Oneyda Davenport RN RN Marysol Hansen RN RN Rosa Bill RN RN ss Garcia, Rubi rg4 Guy Campos RN RN jb4 Beto Fu MD MD ma2 Corrections: (The following items were deleted from the chart) 04/22 20:18 20:13 BP 158 / 98; Pulse 84bpm; Resp 16bpm; Pulse Ox 100% RA; 105.69 kg; Height 5 ft. iw 10 in.; BMI: 33.4; iw
--- NOTE | 2021-04-23 00:15 | EDPHYS ---
Physician Documentation [facility] Name: Alexandra Del Valle Age: 40 yrs Sex: Female : 1980 Arrival Date: 04/22/2021 Time: 18:42 Bed 15 Private MD: ED Physician Beto Fu HPI: 04/23 00:10 This 40 yrs old Female presents to ER via Ambulatory with complaints of ma2 Urinary Problem. 00:10 The patient complains of pain in the left mid back. Onset: The symptoms/episode ma2 began/occurred gradually, 2 day(s) ago. Associated signs and symptoms: Pertinent negatives: dysuria, urinary frequency, headache, nausea, pain radiating to the lower extremities. Severity of pain: At its worst the pain was moderate in the emergency department the pain is unchanged. The patient has not experienced similar symptoms in the past. 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 - Social history:: Smoking status: Patient denies any tobacco usage or history of. - Family history:: not pertinent. ROS: 04/23 00:10 Constitutional: Negative for fever, chills, and weight loss. ma2 All other systems are negative. Exam: 00:10 Constitutional: This is a well developed, well nourished patient who is awake, alert, ma2 and in no acute distress. Chest/axilla: Normal chest wall appearance and motion. Nontender with no deformity. No lesions are appreciated. Cardiovascular: Regular rate and rhythm with a normal S1 and S2. No gallops, murmurs, or rubs. Normal PMI, no JVD. No pulse deficits. Respiratory: Lungs have equal breath sounds bilaterally, clear to auscultation and percussion. No rales, rhonchi or wheezes noted. No increased work of breathing, no retractions or nasal flaring. Abdomen/GI: Soft, non-tender, with normal bowel sounds. No distension or tympany. No guarding or rebound. No evidence of tenderness throughout. Back: No spinal tenderness. No costovertebral tenderness. Full range of motion. Skin: Warm, dry with normal turgor. Normal color with no rashes, no lesions, and no evidence of cellulitis. MS/ Extremity: Pulses equal, no cyanosis. Neurovascular intact. Full, normal range of motion. Neuro: Awake and alert, GCS 15, oriented to person, place, time, and situation. Cranial nerves II-XII grossly intact. Motor strength 5/5 in all extremities. Sensory grossly intact. Cerebellar exam normal. Normal gait. Vital Signs: 04/22 20:13 BP 158 / 98; Pulse 84; Resp 16; Temp 98.5; Pulse Ox 100% on R/A; Weight 105.69 kg; iw Height 5 ft. 10 in. (177.80 cm); 20:13 Body Mass Index 33.43 (105.69 kg, 177.80 cm) iw MDM: 23:17 Patient medically screened. ma2 04/23 00:13 Differential diagnosis: pyelonephritis, UTI. Data reviewed: vital signs, nurses notes. ma2 Counseling: I had a detailed discussion with the patient and/or guardian regarding: the historical points, exam findings, and any diagnostic results supporting the discharge/admit diagnosis, the presence of at least one elevated blood pressure reading (>120/80) during this emergency department visit, the need for outpatient follow up. Response to treatment: the patient's symptoms have markedly improved after treatment. 04/22 20:28 Order name: Urine Microscopic Only; Complete Time: 23:18 kb 04/22 20:51 Order name: Urine Dipstick-Ancillary [facility] 04/22 20:19 Order name: CT Stone Protocol; Complete Time: 23:18 iw 04/22 20:52 Order name: Urine --Ancillary (enter results); Complete Time: 23:18 [facility] 04/22 20:52 Order name: Urine Culture [facility] 04/22 23:27 Order name: Urine Dipstick-Ancillary; Complete Time: 23:33 [facility] 04/22 20:28 Order name: Urine Dipstick-Ancillary (obtain specimen); Complete Time: 20:54 kb 04/22 20:28 Order name: Urine Test (obtain specimen); Complete Time: 20:54 kb Administered Medications: 00:19 Drug: Motrin (ibuprofen) 400 mg Route: PO; jb4 00:35 Follow up: Response: No adverse reaction jb4 00:19 Drug: Rocephin (cefTRIAXone) 1000 mg Route: IM; Site: left gluteus; jb4 00:34 Follow up: Response: No adverse reaction jb4 Disposition Summary: 04/23/21 00:14 Discharge Ordered Location: Home ma2 Condition: Stable ma2 Diagnosis - Acute cystitis without hematuria - with pyelonephritis - left side ma2 Followup: ma2 - With: Private Physician - When: Tomorrow - Reason: If symptoms return, Continuance of care Discharge Instructions: - Discharge Summary Sheet ma2 - Urinary Tract Infection, Adult, Ilux-iy-Sreg ma2 Forms: - Medication Reconciliation Form ma2 - Thank You Letter ma2 - Antibiotic Education ma2 - Prescription Opioid Use ma2 Prescriptions: - Diclofenac Sodium 75 mg Oral Tablet Sustained Release - take 1 tablet by ORAL route 2 times per day; 30 tablet; Refills: 0, Product ma2 Selection Permitted - Bactrim DS 800-160 mg Oral Tablet - take 1 tablet by ORAL route every 12 hours for 10 days; 20 tablet; Refills: 0, ma2 Product Selection Permitted Signatures: Dispatcher [employer] Caryl Camp, SHOE LINING FITTER-C SHOE LINING FITTER-Marysol Connelly, RN RN Guy Ferreira RN RN jb4 Beto Fu MD MD or2
[2021-04-23 00:54] VITALS: BP 158/98; TEMP 98.5; O2SAT 100
== END 2021-04-23 00:35 | disposition home or self-care (01) ==
LOC: ER 18:39
DX: N30.00 Acute cystitis without hematuria (principal); N12 Tubulo-interstitial nephritis, not specified as acute or chronic; I10 Essential (primary) hypertension
CPT/HCPCS: 74176; 76377; 81003; 81015; 81025; 87077; 87086; 87088; 87186; 96372; 99283

== ENCOUNTER 2021-06-05 07:59 | Emergency (ER) | payer SELFPAY ==
--- NOTE | 2021-06-05 09:41 | EDPHYS ---
Physician Documentation [facility] Name: Alexandra Del Valle Age: 40 yrs Sex: Female : 1980 Arrival Date: 06/05/2021 Time: 08:03 Bed Waiting Private MD: ED Physician Syed Moran HPI: 06/05 08:59 This 40 yrs old Female presents to ER via Unassigned with complaints of rn Abnormal Lab Results. 08:59 This 40 yrs old Female presents to ER via Unassigned with complaints of rn Abnormal Lab Results. 08:59 Patient reports head regular blood drawn this week, given results yesterday, told iron rn level low and may need iron transfusion. Patient states taking oral iron pills. Reports generalized fatigue. Denies shortness of breath or chest pain. Already made appointment with Dr. Kauffman. States knows needs a hysterectomy, and is getting an appointment with Dr. Byrd. Onset: The symptoms/episode began/occurred at an unknown time. Severity of symptoms: At their worst the symptoms were mild in the emergency department the symptoms are unchanged. The patient has experienced similar episodes in the past, chronically. The patient has been recently seen by a physician:. Patient states this has been a longstanding problem, no gross or significant changes recently. She states she did not know how well she could get an iron transfusion and her PCP told her to come here.. - Family history:: not pertinent. - Hospitalizations: : No recent hospitalization is reported. ROS: 08:59 Constitutional: Negative for fever, chills, and weight loss, Eyes: Negative for injury, rn pain, redness, and discharge, Neck: Negative for injury, pain, and swelling, Cardiovascular: Negative for chest pain, palpitations, and edema, Respiratory: Negative for shortness of breath, cough, wheezing, and pleuritic chest pain, Abdomen/GI: Negative for abdominal pain, nausea, vomiting, diarrhea, and constipation, Back: Negative for injury and pain, : Negative for injury, and swelling, MS/Extremity: Negative for injury and deformity, Skin: Negative for injury, rash, and discoloration, Neuro: Negative for headache, numbness, tingling, and seizure. 08:59 All other systems are negative. Exam: 08:59 Constitutional: This is a well developed, well nourished patient who is awake, alert, rn and in no acute distress. Head/Face: Normocephalic, atraumatic. Eyes: Periorbital areas with no swelling, redness, or edema. Cardiovascular: Regular rate and rhythm. No pulse deficits. Respiratory: Speaking full sentences, unlabored Skin: No cyanosis MS/ Extremity: No cyanosis. Full, normal range of motion. Neuro: Awake and alert, GCS 15, oriented to person, place, time, and situation. Cerebellar exam normal. Normal gait. Vital Signs: 09:50 Resp 16; ss 09:50 Patient discharged prior to recieving full set of VS ss MDM: 09:38 Differential Diagnosis anemia, iron deficiency anemia, chronic menorrhagia . Data rn reviewed: vital signs, nurses notes, lab test result(s), and as a result, I will discharge patient. Counseling: I had a detailed discussion with the patient and/or guardian regarding: the historical points, exam findings, and any diagnostic results supporting the discharge/admit diagnosis, lab results, the need for outpatient follow up, to return to the emergency department if symptoms worsen or persist or if there are any questions or concerns that arise at home. Special discussion: I discussed with the patient/guardian in detail that at this point there is no indication for admission to the hospital. It is understood, however, that if the symptoms persist or worsen the patient needs to return immediately for re-evaluation. Based on the history and exam findings, there is no indication for further emergent testing or inpatient evaluation. I discussed with the patient/guardian the need to see the painter hand/oncologist for further evaluation of the symptoms. ED course: Patient with low ferritin and low iron, but hemoglobin 11.7 with MCV 78. Patient here with full set of labs. Otherwise asymptomatic and well-appearing. Will DC home with hematology and PCP follow-up for outpatient iron infusion if needed. Discussed case with patient and understands it is a chronic problem and does not require ER blood transfusion or iron infusion.. 09:40 Patient medically screened. rn Administered Medications: No medications were administered Disposition Summary: 06/05/21 09:40 Discharge Ordered Location: Home rn Problem: chronic rn Symptoms: are unchanged rn Condition: Stable rn Diagnosis - Iron deficiency anemia, unspecified rn Followup: rn - With: Lena Sanchez MD - When: As needed - Reason: Further diagnostic work-up, Recheck today's complaints, Continuance of care, Re-evaluation by your physician Discharge Instructions: - Discharge Summary Sheet rn - Iron Deficiency Anemia, Adult rn Forms: - Medication Reconciliation Form rn - Thank You Letter rn - Antibiotic agribusiness internship - Prescription Opioid Use rn Signatures: Syed Moran MD MD rn
--- NOTE | 2021-06-05 09:41 | ER ---
Nurse's Notes [facility] Name: Alexandra Del Valle Age: 40 yrs Sex: Female : 1980 Arrival Date: 06/05/2021 Time: 08:03 Bed Waiting Private MD: Diagnosis: Iron deficiency anemia, unspecified Presentation: 06/05 09:50 Chief complaint: Patient states: Told her iron levels were low and to come to ER for ss transfusion. Coronavirus screen: Client denies travel out of the [place] in the last 14 days. Ebola Screen: Patient denies exposure to infectious person. Patient denies travel to an Ebola-affected area in the 21 days before illness onset. Initial Sepsis Screen: Does the patient meet any 2 criteria? No. Patient's initial sepsis screen is negative. Does the patient have a suspected source of infection? No. Patient's initial sepsis screen is negative. Risk Assessment: Do you want to hurt yourself or someone else? Patient reports desire/thoughts of hurting themselves or someone else. Provider notified. Onset of symptoms is unknown. 09:50 Method Of Arrival: Ambulatory ss 09:50 Acuity: AMANDA 5 ss - Family history:: not pertinent. - Hospitalizations: : No recent hospitalization is reported. Assessment: 09:08 Reassessment: Called patient to triage. Pt told ER doctor that she needed to go home ss and grab her lab results and will be back shortly. Vital Signs: 09:50 Resp 16; ss 09:50 Patient discharged prior to recieving full set of VS ss ED Course: 08:03 Patient arrived in ED. mr 08:07 Syed Moran MD is Attending Physician. rn 09:40 Lena Sanchez MD is Referral Physician. rn 10:40 No provider procedures requiring assistance completed. Patient did not have IV access ss during this emergency room visit. 19:33 Triage completed. ss Administered Medications: No medications were administered Outcome: :40 Discharge ordered by . rn 10:00 Discharged to home ambulatory. ss 10:00 Condition: good 10:00 Discharge instructions given to patient, Instructed on discharge instructions, follow up and referral plans. Demonstrated understanding of dc instructions given by Dr. Moran 11:41 Patient left the ED. ss Signatures: Melba Pearson mr Syed Moran MD MD rn Smirch, Rosa, RN RN ss
== END 2021-06-05 11:41 | disposition home or self-care (01) ==
LOC: ER 07:59
DX: D50.9 Iron deficiency anemia, unspecified (principal)
CPT/HCPCS: 99281

== ENCOUNTER 2025-01-17 14:23 | Emergency (ER) | payer BC, SELFPAY ==
--- OUTSIDE RECORDS SUMMARY | 2025-01-17 14:26 | XMS REPORT | Continuity of Care Document ---
Author Name Unknown Address [address] [facility] [address] [place] [address] [facility] [place] Address [address] [facility] [address] [place] [address] Care Team Providers Care [place] Worker Name Role Phone MINH GIBSON Primary Care Physician SRINATH Lane Attending Clinician Unavailable ANDREW_GCBZW_Carson_S Attending Clinician Unavailosvaldo Delacruz MD, Srinath Thorpe Attending Clinician [phone] HUMBERTO MONTALVO Attending Clinician UnavailMel Tolbert MD Attending Clinician [phone] Doctor Unassigned, Kennan Attending Clinician Mary Almanza PA-C Attending Clinician [phone] REDDY CABRERA Attending Clinician Unavailable Therapy, Adc Covid Infusion Attending Clinician Unavailable Reddy Cabrera MD Attending Clinician [phone] SRINATH DELACRUZ Admitting Clinician Unavailable ANDREW_GCBZW_Carson_S Admitting Clinician Quan abreu Payers Payer Name Policy Type Policy Number Effective Date Expirati on Date Source [facility] [id number] 2020 00:00:00 Problems Condition Name Condition Details Condition Category Status Onset Date Resolution Date Last Treatment Date Treating Clinician Comments Source Morbid obesity with body mass index of 40.0-49.9 Morbid obesity with body mass index of 40.0-49.9 Disease Active 2020-10 00:00: 00 [facility] Menorrhagi a with irregular cycle Menorrhagi a with irregular cycle Disease Active 2020-10 00:00: 00 [facility] Mixed stress and urge urinary incontinen ce Mixed stress and urge urinary incontinen ce Disease Active 2020-10 00:00: 00 [facility] Allergies, Adverse Reactions, Alerts Allergy Name Allergy Type Status Severity Reaction(s) Onset Date Inactive Date Treating Clinician Comments Source NO KNOWN ALLERGIE S Drug Class Active [facility] Social History Social Habit Start Date Stop Date Quantity Comments Source History SDOH Alcohol Std Drinks [facility] History SDOH Alcohol Binge [facility] History SDOH Alcohol Comment [place] [facility] Alcohol intake 2021-11-22 00:00:00 2021-11-22 00:00:00 Lifetime non-drinker (finding) [facility] Tobacco use and exposure 2021-09-27 00:00:00 2021-09-27 00:00:00 Never used [facility] History SDOH Alcohol Frequency 2021-09-27 00:00:00 2021-09-27 00:00:00 1 [facility] Sex Assigned At 1980 00:00:00 1980 00:00:00 [facility] Smoking Status Start Date Stop Date Source Never smoker [facility] Medications Ordered Medication Name Filled Medication Name Start Date Stop Date Current Medication? Ordering Clinician Indication Dosage Frequency Signature (SIG) Comments Components Source metroNIDAZO LE 500 mg tablet 2020-10 00:00: 00 Yes [id number] 500mg Take 1 tablet by mouth every 12 (twelve) hours. [facility] hydrOXYzine 50 mg capsule 2020-10 00:00: 00 Yes TAKE ONE (1) CAPSULE(S) BY MOUTH 30 MINUTES PRIOR TO PROCEDURE. [facility] lisinopriL 20 mg tablet 2020-10 00:00: 00 Yes 20mg Take 20 mg by mouth daily. [facility] simvastatin 20 mg tablet 2020-10 00:00: 00 Yes 20mg Take 20 mg by mouth at bedtime. [facility] pantoprazol e 40 mg EC tablet 07-16 00:00: 00 Yes 40mg Take 40 mg by mouth every morning. [facility] Vital Signs Vital Name Observation Time Observation Value Comments S tiffanie Systolic blood pressure 2021-11-22 14:14:00 127 mm[Hg] [facility] Diastolic blood pressure 2021-11-22 14:14:00 85 mm[Hg] [facility] Heart rate 2021-11-22 14:14:00 90 /min Unive [facility] Body temperature 2021-11-22 14:14:00 36.44 Lexi [facility] Respiratory rate 2021-11-22 14:14:00 18 /min [facility] Body height 2021-11-22 14:14:00 177.8 cm [facility] Body weight 2021-11-22 14:14:00 130.636 kg [facility] BMI 2021-11-22 14:14:00 41.32 kg/m2 [facility] Encounters Start Date/Time End Date/Time Encounter Type Admission Type Attending [facility] Care Facility Care Department Encounter ID Source 2022-01-29 12:31:09 Outpatient R SRINATH DELACRUZ [facility] [id number] [facility] 2023-08-14 00:00:00 2023-08-14 00:00:00 Outpatient GC_GCBZW_Ka diyala_S PRIV PRIV [id number] [facility] 2022-01-09 00:00:00 2022-01-09 00:00:00 Telephone Srinath Delacruz [facility] 1..840.114 350.1.13.10 4.2.7.2.686 [id number] [facility] 2021-11-22 08:00:00 2021-11-22 08:48:11 Office Visit Srinath Delacruz [facility] 1..840.114 350.1.13.10 4.2.7.2.686 [id number] [facility] 2021-11-22 08:00:00 2021-11-22 08:48:11 Outpatient R SRINATH DELACRUZ [facility] [id number] [facility] 2021-11-22 08:00:00 2021-11-22 08:00:00 Outpatient R SRINATH DELACRUZ [facility] [id number] [facility] 2021-11-22 00:00:00 2021-11-22 00:00:00 Prep For [facility] 1.2.840.114 350.1.13.10 4.2.7.2.686 [id number] [facility] 2021-10-29 13:40:00 2021-10-29 13:40:00 Outpatient R HUMBERTO MONTALVO [facility] [id number] [facility] 2021-10-29 13:40:00 2021-10-29 13:40:00 Outpatient R HUMBERTO MONTALVO [facility] [id number] [facility] 2021-10-23 09:00:00 2021-10-23 09:00:00 Outpatient R SRINATH DELACRUZ [facility] [id number] [facility] 2021-10-14 13:30:00 2021-10-14 23:59:00 Hospital Encounter Srinath Delacruz [facility] 1..840.114 350.1.13.10 4.2.7.2.686 [id number] [facility] 2021-10-14 16:00:00 2021-10-14 17:03:22 Outpatient R SRINATH DELACRUZ [facility] [id number] [facility] 2021-10-14 16:00:00 2021-10-14 17:03:22 [facility] 1.2.840.114 350.1.13.10 4.2.7.2.686 [id number] [facility] 2021-10-14 16:00:00 2021-10-14 16:00:00 Outpatient R SRINATH DELACRUZ [facility] [id number] [facility] 2021-10-14 15:00:00 2021-10-14 15:30:00 Office Visit Mel Mcgee [facility] 1.2.114 350.1.13.10 4.2.7.2.686 [id number] [facility] 2021-10-14 14:30:00 2021-10-14 14:30:00 Outpatient R MEL MCGEE [facility] [id number] [facility] 2021-10-14 14:30:00 2021-10-14 14:30:00 Outpatient R SRINATH DELACRUZ [facility] [id number] [facility] 2021-10-07 00:00:00 2021-10-07 00:00:00 Orders Only Doctor Unassigned, Kennan [facility] 1..114 350.1.13.10 4.2.7.2.686 [id number] [facility] 2021-10-07 00:00:00 2021-10-07 00:00:00 Case Management Mary Ayers [facility] 1..114 350.1.13.10 4.2.7.2.686 [id number] [facility] 2021-10-01 00:00:00 2021-10-01 00:00:00 Telephone Srinath Delacruz [facility] 1..114 350.1.13.10 4.2.7.2.686 [id number] [facility] 2021-09-27 08:17:31 2021-09-27 09:39:36 Office Visit DelacruzSrinath Maurilio [facility] 1..114 350.1.13.10 4.2.7.2.686 [id number] [facility] 2021-09-27 08:00:00 2021-09-27 09:39:36 Outpatient R NUBIA [facility] [id number] [facility] 2021-09-27 08:00:00 2021-09-27 09:39:36 Outpatient R NUBIA [facility] [id number] [facility] 2021-09-27 08:00:00 2021-09-27 08:00:00 Outpatient R NUBIA [facility] [id number] [facility] 2021-09-27 00:00:00 2021-09-27 00:00:00 Orders Only Doctor Unassigned, Kennan [facility] 1..840.114 350.1.13.10 4.2.7.2.686 [id number] [facility] 2021-06-18 00:00:00 2021-06-18 00:00:00 Orders Only Doctor Unassigned, Kennan [facility] 1.2.840.114 350.1.13.10 4.2.7.2.686 [id number] [facility] 2021-06-15 11:00:00 2021-06-15 11:00:00 Outpatient REDDY CARRINGTON [facility] [id number] [facility] 2021-06-15 08:43:48 2021-06-15 09:43:48 Nurse Visit Therapy, Adc Covid Infusion Reddy Cabrera [facility] 1.2.840.114 350.1.13.10 4.2.7.2.686 [id number] [facility] Results Test Description Test Time Test Comments Results Resul t Comments Source SCR MAMM BILATERAL SANTIAGO CAD DIGITAL 2021-09-02 11:40:03 Name: Jin : 1980 Sex: F - SCR MAMM BILATERAL SANTIAGO CAD DIGITALBILATERAL FIRST EVER DIGITAL SCREENING MAMMOGRAM 3D/2D WITH CAD: 08/28/2021LINICAL: Asymptomatic. Digital breast tomosynthesis was performed in addition to routine CC and MLO views. Current mammographic images were evaluated by [employer] CAD (computer-aided detection) software. No prior exams were available for comparison. The tissue of both breasts is heterogeneously dense. This may lower the sensitivity of mammography. No suspicious mass, architectural distortion, malignant type calcification, or lymph node abnormality detected. IMPRESSION: NEGATIVEThere is no mammographic evidence of malignancy. Resume annual screening mammography in one year. Ry Rivera/penrad:09/02/2021 11:40:03 Books Binder: Minh Garcia MM, [facility] Mammographyletter sent: BIRADS 1-2 Normal Mammogram BI-RADS: 1 Negative
--- NOTE | 2025-01-17 14:57 | RAD REPORT ---
EXAMINATION: Ct Stroke Brain Wo Cont CLINICAL INDICATION: Female, 44 years old.DIFFICULTY SPEAKING TECHNIQUE: Axial CT images from the skull base to the vertex without intravenous contrast using a str isa protocol. Coronal and sagittal reformatted images were created from the data set. One or more of the following dose reduction techniques were used: Automated exposure control, adjustment of the m A and/or kV according to patient size, and/or iterative reconstruction. Unless otherwise specified, incidental findings do not require dedicated imaging follow-up. [id number]. COMPARISON: 08/18/2020 FINDINGS: INTRACRANIAL: No acute intracranial hemorrhage. No hydrocephalus. No mass effect or midline shift. No significant white matter disease. VASCULATURE: No visualized abnormalities in the arteries or dural venous sinuses. SCALP/SKULL: No calvarial fracture identified. No acute soft tissue abnormality. SINUSES: The visualized paranasal sinuses are mostly clear. No significant mastoid fluid. IMPRESSION: No acute intracranial abnormality. THIS REPORT CONTAINS FINDINGS THAT MAY BE CRITICAL TO PATIENT CARE. The findings were communicated to Dr. Casillas on 01/17/2025 2:54 PM.
--- NOTE | 2025-01-17 14:58 | RAD REPORT ---
EXAMINATION: Neck Angio CLINICAL INDICATION: Female, 44 years old. DIFFICULTY SPEAKING TECHNIQUE: Axial CT images were obtained from the aortic arch to the skull base after intravenous con trast utilizing angiographic protocol with 3D post-processing (maximum intensity projection images, volume rendered images and/or shaded surface rendered images). One or more of the following dose redu ction techniques were used: Automated exposure control, adjustment of the mA and/or kV according to patient size, and/or iterative reconstruction. Unless otherwise specified, incidental findings do not require dedicated imaging follow-up. [id number]. NASCET criteria used. Mild 0-49% stenosis Moderate 50-69% stenosis Severe 70-99% stenosis COMPARISON: No prior exam. FINDINGS: AORTA: Normal RIGHT: - CCA: Patent - ICA: Patent - ECA: Patent LEFT: - CCA: Patent - ICA: Patent - ECA: Patent VERTEBRAL: Patent SOFT TISSUE: No significant neck soft tissue abnormalities. The visualized lung apices are clear. 3D images confirm these findings. IMPRESSION: No arterial dissection or stenosis identified within the neck.
--- NOTE | 2025-01-17 14:59 | RAD REPORT ---
EXAMINATION: Head angio CLINICAL INDICATION: Female, 44 years old. DIFFICULTY SPEAKING TECHNIQUE: Axial CT images were obtained through the head after intravenous contrast utilizing angiog raphic protocol with 3D post-processing (maximum intensity projection images, volume rendered images and/or shaded surface rendered images). One or more of the following dose reduction technique s were used: Automated exposure control, adjustment of the mA and/or kV according to patient size, and/or iterative reconstruction. Unless otherwise specified, incidental findings do not require dedic ated imaging follow-up. COMPARISON: No prior exam. FINDINGS: RIGHT: ICA: Patent THERESA: Patent MCA: Patent [employer]INKL[employer] SERVICER: Patent LEFT: ICA: Patent THERESA: Patent MCA: Patent [employer]INKL[employer] SERVICER: Patent. -type right [employer]INKLER SERVICER. Vertebrobasilar: The vertebral arteries are patent. The basilar artery is normal in appearance. 3D images confirm these findings. IMPRESSION: No occlusion, aneurysm, or hemodynamically significant stenosis identified.
[2025-01-17 15:09] LABS: Absolute Eosinophils 0.2 K/uL (0-0.5); Absolute Lymphocytes (CBC) 1.2 K/uL (0.7-4.9); Absolute Monocytes 0.5 K/uL (0.1-1.3); Absolute Neutrophil 3.4 K/uL (1.8-8.0); Basophils % 0.8 % (0-1.3); Eosinophils % 3.9 % (0-4.4); Hematocrit 33.9 % (36.0-45.0); Hemoglobin 10.9 g/dL (12.0-15.0); Lymphocytes % 22.4 % (15.3-44.8); MCH 21.7 pg (27.0-35.0); MCHC 32.1 g/dL (32.0-36.0); MCV 67.8 fL (80-100); MPV 7.6 fL (7.6-11.3); Monocytes % 9.9 % (3.3-12.3); Nucleated Red Blood Cells % 0.1 % (0-0); Platelets 318 thou/uL (152-406); RBC Red Blood Cell Count 5.01 M/uL (3.86-4.86); Red Cell Distribution Width 17.3 % (12.1-15.2)
[2025-01-17] MEDS ORDERED: FOLIC ACID 5 MG/ML VIAL ONE (15:09)
[2025-01-17] MEDS ORDERED: NA CHLORIDE 0.9% 1,000 ML ONE (15:09)
--- NOTE | 2025-01-17 15:09 | RAD REPORT ---
EXAM: Chest Single View HISTORY: 44 years Female COUGH COMPARISON: None. FINDINGS: LUNGS/PLEURA: The lungs are clear. No pleural effusions or pneumothorax. No pulmonary edema. CARDIAC/MEDIASTINUM: The cardiac silhouette is within normal limits. UPPER ABDOMEN: No significant abnormality. BONES: No acute abnormality. LINES/TUBES/OTHER: N/A IMPRESSION: No evidence of acute cardiopulmonary disease.
[2025-01-17] MEDS ORDERED: LABETALOL 20 MG/4ML SYRINGE IV ONE (15:14)
[2025-01-17 15:19] LABS: PT Prothrombin Time 12.2 SECONDS (10-13.0); Protime INR 1.07
[2025-01-17 15:26] LABS: ALT/SGPT 35 U/L (13-56); AST/SGOT 17 U/L (15-37); Albumin 3.5 g/dL (3.4-5.0); Albumin/Globulin Ratio 0.8 (1.1-1.8); Alkaline Phosphatase 84 U/L (45-117); Anion Gap 6.8 mEq/L (5.0-15.0); BUN Blood Urea Nitrogen 15 mg/dL (7-18); Bicarbonate 25 mEq/L (21-32); Bilirubin Total 0.4 mg/dL (0.2-1.0); Globulin 4.2 g/dL (2.3-3.5); Glomerular Filtration Rate 83 ml/min (=/>90); Glucose Level 104 mg/dL (74-106); Magnesium 2.3 mg/dL (1.6-2.4); NT PRO-BNP 39 pg/mL (<125); Potassium 3.8 mEq/L (3.5-5.1); Protein, Total 7.7 g/dL (6.4-8.2); Sodium Level 138 mEq/L (136-145); Troponin High Sensitivity 4.8 pg/mL (<58.9)
[2025-01-17 15:28] LABS: Bilirubin Direct < 0.2 mg/dL (0-0.2); Bilirubin Indirect, Calculated 0.2 mg/dL (0.2-0.8)
--- NOTE | 2025-01-17 16:29 | RAD REPORT ---
EXAMINATION: Brain Wo Cont CLINICAL INDICATION: Female, 44 years old. TIA TECHNIQUE: Multiplanar multisequence MR images of the brain were obtained without intravenous contras t. Unless otherwise specified, incidental findings do not require dedicated imaging follow-up. [id number]. COMPARISON: Same-day head CT FINDINGS: INTRACRANIAL: No acute infarct identified. No significant mass effect or midline shift.No hydrocepha valerie. No significant white matter disease. VASCULATURE: Normal signal voids in the larger intracranial arteries and dural venous sinuses. SINUSES: The paranasal sinuses are predominantly clear.No mastoid effusions. BONE: The marrow signal pattern is within normal limits. IMPRESSION: No acute intracranial abnormality. Specifically, no evidence of acute infarct.
[2025-01-17 17:13] LABS: Anisocytosis 1+; Blood Morphology Comment NOTED (NOT SEEN); Platelet Estimate ADEQ; Poikilocytosis 1+; White Blood Cell Scan OK (OK)
[2025-01-17 17:20] LABS: Sqamous Epithelial <5 /HPF (None Seen); Urine Bacteria None Seen /HPF (<20); Urine Bilirubin NEGATIVE (Negative); Urine Blood 1+ (Negative); Urine Clarity Clear (Clear); Urine Color Light-Yellow (Yellow); Urine Culture Reflex Order NOT NEEDED; Urine Glucose NEGATIVE (Negative); Urine Ketones NEGATIVE (Negative); Urine Microscopic Reflex YN ORDER UMIC; Urine Nitrite NEGATIVE (Negative); Urine Protein NEGATIVE (Negative); Urine RBC <5 /HPF (None Seen); Urine Urobilinogen Normal (Normal); Urine WBC <5 /HPF (<5); Urine pH 6.5 (5.0-7.0)
[2025-01-17 17:22] LABS: Specific Gravity > 1.030 (1.005-1.030)
--- NOTE | 2025-01-17 17:51 | EDPHYS ---
Physician Documentation [facility] Name: Alexandra Del Valle Age: 44 yrs Sex: Female : 1980 Arrival Date: 01/17/2025 Time: 14:23 Bed 20 Private MD: ED Physician Will Casillas HPI: 01/17 17:42 This 44 yrs old Unknown Female presents to ER via Wheelchair with complaints of S/S of dee Possible Stroke. 17:42 The patient's problem is reported as weakness. Onset: The symptoms/episode dee began/occurred just prior to arrival, this morning. Duration: This was a single incident. Context: occurred while the patient was NORMAL ACTIVITY. The symptoms are alleviated by nothing. The symptoms are aggravated by nothing. Severity of symptoms: At their worst the symptoms were mild in the emergency department the symptoms are unchanged. Patient's baseline: Neuro: alert and fully oriented. The patient has not experienced similar symptoms in the past. Historical: - Allergies: 14:51 No Known Allergies; cm10 - PMHx: 14:51 Hypertension; Migraines; cm10 - Immunization history:: Adult Immunizations unknown. - Infectious Disease History:: Denies. - Social history:: Smoking status: unknown. ROS: 17:45 Constitutional: Negative for fever, chills, and weight loss, Eyes: Negative for injury, dee pain, redness, and discharge, ENT: Negative for injury, pain, and discharge, Neck: Negative for injury, pain, and swelling, Cardiovascular: Negative for chest pain, palpitations, and edema, Respiratory: Negative for shortness of breath, cough, wheezing, and pleuritic chest pain, Abdomen/GI: Negative for abdominal pain, nausea, vomiting, diarrhea, and constipation, Back: Negative for injury and pain, : Negative for injury, bleeding, discharge, and swelling, MS/Extremity: Negative for injury and deformity, Skin: Negative for injury, rash, and discoloration, Psych: Negative for depression, anxiety, suicide ideation, homicidal ideation, and hallucinations, Allergy/Immunology: Negative for hives, rash, and allergies, Endocrine: Negative for neck swelling, polydipsia, polyuria, polyphagia, and marked weight changes, Hematologic/Lymphatic: Negative for swollen nodes, abnormal bleeding, and unusual bruising, 17:45 Neuro: Positive for altered mental status, headache, weakness, Exam: 17:45 Radiologist reports: NEG dee 17:45 Constitutional: This is a well developed, well nourished patient who is awake, alert, and in no acute distress. Head/Face: Normocephalic, atraumatic. Eyes: Pupils equal round and reactive to light, extra-ocular motions intact. Lids and lashes normal. Conjunctiva and sclera are non-icteric and not injected. Cornea within normal limits. Periorbital areas with no swelling, redness, or edema. ENT: Nares patent. No nasal discharge, no septal abnormalities noted. Tympanic membranes are normal and external auditory canals are clear. Oropharynx with no redness, swelling, or masses, exudates, or evidence of obstruction, uvula midline. Mucous membranes moist. Neck: Trachea midline, no thyromegaly or masses palpated, and no cervical lymphadenopathy. Supple, full range of motion without nuchal rigidity, or vertebral point tenderness. No Meningismus. Chest/axilla: Normal chest wall appearance and motion. Nontender with no deformity. No lesions are appreciated. Cardiovascular: Regular rate and rhythm with a normal S1 and S2. No gallops, murmurs, or rubs. Normal PMI, no JVD. No pulse deficits. Respiratory: Lungs have equal breath sounds bilaterally, clear to auscultation and percussion. No rales, rhonchi or wheezes noted. No increased work of breathing, no retractions or nasal flaring. Abdomen/GI: Soft, non-tender, with normal bowel sounds. No distension or tympany. No guarding or rebound. No evidence of tenderness throughout. Back: No spinal tenderness. No costovertebral tenderness. Full range of motion. Skin: Warm, dry with normal turgor. Normal color with no rashes, no lesions, and no evidence of cellulitis. MS/ Extremity: Pulses equal, no cyanosis. Neurovascular intact. Full, normal range of motion., bilateral aka Neuro: Awake and alert, GCS 15, oriented to person, place, time, and situation. Cranial nerves II-XII grossly intact. Motor strength 5/5 in all extremities. Sensory grossly intact. Cerebellar exam normal. Normal gait. Psych: Awake, alert, with orientation to person, place and time. Behavior, mood, and affect are within normal limits. 17:45 ECG was reviewed by the Attending Physician. 17:45 Musculoskeletal/extremity: Extremities: all appear grossly normal, with no appreciated pain with palpation, ROM: no acute changes, Circulation is intact in all extremities. Sensation intact. Compartment Syndrome exam of affected extremity: is normal. Joints: All joints appear normal with full range of motion. Weight bearing: can bear weight with assistance only, Tendon exam: specific tendon testing normal through active and passive range of motion DVT Exam: No signs of deep vein thrombosis. no pain, no swelling, no tenderness, negative Homans' sign noted on exam, no appreciated bluish discoloration, no erythema, no increased warmth, Calves: are non-tender, have equal circumference, Vital Signs: 14:58 BP 207 / 111; Pulse 81; Resp 18; Temp 98.1(TE); Pulse Ox 97% on R/A; Height 5 ft. 7 in. ld1 ; Pain 0/10; 15:33 BP 166 / 94; Pulse 66; Resp 18; Pulse Ox 100% on R/A; ld1 16:51 BP 155 / 88; Pulse 69; Resp 18; Pulse Ox 99% on R/A; ld1 17:57 BP 159 / 100; Pulse 84; Resp 18; Pulse Ox 99% on R/A; ld1 14:58 Pain Scale: Adult ld1 NIH Stroke Scale Scores: 14:58 NIHSS Score: 1 ld1 MDM: 14:38 Medical Screening Exam initiated dee 17:47 Differential diagnosis: CVA, TIA, metabolic disorder, drug effects. TNKase dee (Tenecteplase) Screening: Contraindications: Other: OCCURRED THIS MORNING , OUT OF THE WINDOW. Data reviewed: vital signs, nurses notes, lab test result(s), EKG, radiologic studies, CT scan, MRI, plain films. Consideration of Admission/Observation Escalation of care including admission/observation considered. I considered the following discharge prescriptions or medication management in the emergency department Medications were administered in the Emergency Department. See MAR. Independent interpretation of the following test(s) in the Emergency Department EKG: See my EKG interpretation above. Test considered but Not performed: Ultrasound NO 2 D ECHO. Historians other than the Patient: Spouse/Significant Other: SPOUSE WELL INFORMED. Care significantly affected by the following chronic conditions: Hypertension, Obesity, MIGRAINES. 01/17 14:38 Order name: Basic Metabolic Panel; Complete Time: 17:10 dee 01/17 14:38 Order name: CBC with Diff; [facility]: [facility] 14:38 Order name: LFT's; Complete [facility]: [facility]:10 [facility] 01/17 14:38 Order name: Magnesium; Complete Time: [facility]:10 [facility] 01/17 14:38 Order name: NT PRO-BNP; Complete Time: [facility]:10 [facility] 01/17 14:38 Order name: PT-INR; Complete Time: 17:10 [facility] 01/17 14:38 Order name: Troponin HS; Complete Time: 17:10 [facility] 01/17 14:38 Order name: Urinalysis w/ reflexes; Complete Time: 17:36 [facility] 01/17 15:06 Order name: Glucose, Ancillary Testing; Complete Time: 17:10 [facility] 01/17 17:14 Order name: CBC Smear Scan; Complete Time: 17:36 [facility] 01/17 14:36 Order name: Head angio; Complete Time: 17:10 [facility] 01/17 14:37 Order name: Neck Angio; Complete Time: 17:10 [facility] 01/17 14:38 Order name: Ct Stroke Brain Wo Cont; Complete Time: 17:10 [facility] 01/17 14:38 Order name: XRAY Chest (1 view); Complete Time: 17:10 [facility] 01/17 15:34 Order name: Brain Wo Cont; Complete Time: 17:10 [facility] 01/17 14:38 Order name: EKG; Complete Time: 14:38 [facility] 01/17 14:38 Order name: Cardiac monitoring; Complete Time: 14:58 [facility] 01/17 14:38 Order name: EKG - Nurse/Tech; Complete Time: 14:58 [facility] 01/17 14:38 Order name: IV Saline Lock; Complete Time: 14:58 [facility] 01/17 14:38 Order name: Labs collected and sent; Complete Time: 14:58 [facility] 01/17 14:38 Order name: O2 Per Protocol; Complete Time: 14:58 [facility] 01/17 14:38 Order name: O2 Sat Monitoring; Complete Time: 14:58 [facility] EC:45 Rate is 75 beats/min. Rhythm is regular. QRS [place] is Normal. [place] interval is normal. QRS dee interval is normal. QT interval is normal. No Q waves. T waves are Normal. No ST changes noted. Clinical impression: NSR w/ Non-specific ST/T Changes and No evidence of ischemia. Interpreted by me. Reviewed by me. Administered Medications: 15:15 Drug: Labetalol IV 10 mg IV at per protocol once Route: IV; Rate: per protocol; Site: ld1 right antecubital; 16:54 Follow up: Response: Blood pressure is lowered; IV Status: Completed infusion ld1 15:32 Drug: NS 0.9% IV 1000 ml IV at 1000 ml once; to be given as a bolus over 60 minutes ld1 Route: IV; Rate: 1000 ml; Site: right antecubital; 16:54 Follow up: Response: No adverse reaction; IV Status: Completed infusion; IV Intake: ld1 1000ml 15:33 Drug: foLIC Acid IVPB 1 mg IVPB once Route: IVPB; Site: right antecubital; ld1 16:54 Follow up: Response: No adverse reaction ld1 16:53 Not Given (Other Intervention Used): [id number] mg IV at per protocol once over 2 mins ld1 16:54 Not Given (Other Intervention Used): [id number] mg PO once ld1 17:57 Drug: Aspirin PO Chewable Tablet 324 mg PO once; 81 mg tablets x 4 Route: PO; ld1 Disposition Summary: 01/17/25 17:50 Discharge Ordered Notes: Location: Home dee Problem: new dee Symptoms: have improved dee Condition: Stable dee Diagnosis - Weakness dee - Headache dee Followup: dee - With: Private Physician - When: 2 - 3 days - Reason: Recheck today's complaints, Continuance of care, Re-evaluation by your physician Followup: dee - With: Xavier Dinh MD - When: 2 - 3 days - Reason: Recheck today's complaints, Re-evaluation by your physician Discharge Instructions: - Discharge Summary Sheet dee - General Headache Without Cause dee - Weakness dee - Fatigue dee - Weakness, Lytc-ch-[id number] dee - Aspirin and Your Heart dee - General Headache Without Cause, [id number] dee Forms: - Medication Reconciliation Form dee - Antibiotic Education dee - Prescription Opioid Use dee - Patient Portal Instructions dee - Leadership Thank You Letter dee NIH Stroke Scale - NIH Stroke Score Date: 01/17/2025 Time: 14:58 Total Score = 1 10. Dysarthria (speech clarity - read or repeat words) - 1(Mild to Moderate) 11. Extinction and Inattention (visual/tactile/auditory/spatial/personal) - 0(No abnormality) 1a. Level of Consciousness (LOC) - 0(Alert) 1b. Level of Consciousness (LOC) (Month \T\ Age) - 0(Both) 1c. LOC Commands (Open \T\ Closes Eyes/Float Phlebotomist) - 0(Both) 2. Best Gaze (Lateral Gaze Paresis) - 0(Normal) 3. Visual Field Loss - 0(No visual loss) 4. Facial Palsy - 0(Normal) 5a. Left Arm: Motor (10-second hold) - 0(No drift) 5b. Right Arm: Motor (10-second hold) - 0(No drift) 6a. Left Leg: Motor (5-second hold - always test supine) - 0(No drift) 6b. Right Leg: Motor (5-second hold - always test supine) - 0(No drift) 7. Limb Ataxia (finger/nose \T\ heel/fuentes - test with eyes open) - 0(Absent) 8. Sensory Loss (pinprick arms/legs/face) - 0(Normal) 9. Best Language: Aphasia (description/naming/reading) - 0(No aphasia) Initials: ld1 Signatures: Dispatcher [employer] EDMS Will Casillas MD MD cha Sims, Lauren, RN RN ld1 Elsa Jacob RN RN cm10 Corrections: (The following items were deleted from the chart) 14:36 14:36 Head Brain Wo Cont ordered. EDMS EDMS 14:38 14:38 CT-STROKE BRAIN W/O CONTRAST+CT.RAD.BRZ ordered. EDMS EDMS 14:39 14:38 MR STROKE PROTOCOL+MRI.RAD.BRZ ordered. EDMS EDMS
--- NOTE | 2025-01-17 17:51 | ER ---
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 PT WAS CONFUSED AND SLOW TO RESPOND. PT HAD A FALL THIS MORNING AT 0700 WITH NOSE BLEED. PT REPORTS HAVING HEADACHE FOR 3 DAYS. Coronavirus screen: Client denies travel out of the [place] in the last 14 days. Ebola Screen: Patient denies travel to an Ebola-affected area in the 21 days before illness onset. An acute neurological deficit is present. Initial Sepsis Screen: Does the patient meet any 2 criteria?. Onset of symptoms was January 17, 2025. 14:29 Method Of Arrival: Wheelchair cm10 14:29 Acuity: AMANDA 2 cm10 17:58 The patients blood glucose was checked before arriving to the hospital and was found to ld1 be normal. Initial Sepsis Screen: Does the patient meet any 2 criteria? Does the patient have a suspected source of infection? No. Patient's initial sepsis screen is negative. Risk Assessment: Do you want to hurt yourself or someone else? Patient reports no desire to harm self or others. Stroke Activation: Symtpom onset >3 hours and < 6 hours Physician: ED Attending; Name: CARMINE; Notified At: 14:30; Arrived At: Physician: Mid-Level Provider; Name: ; Notified At: 12:30; Arrived At: Physician: [not used]; Name: ; Notified At: ; Arrived At: Physician: [not used]; Name: ; Notified At: ; Arrived At: Physician: [not used]; Name: ; Notified At: ; Arrived At: Historical: - Allergies: 14:51 No Known Allergies; cm10 - PMHx: 14:51 Hypertension; Migraines; cm10 - Immunization history:: Adult Immunizations unknown. - Infectious Disease History:: Denies. - Social history:: Smoking status: unknown. Screenin:58 [facility] ED Fall Risk Assessment (Adult) History of falling in the last 3 months, ld1 including since admission Yes- single mechanical fall (1 pt) Confusion or Disorientation Yes (5 pts) Intoxicated or Sedated No (0 pts) Impaired Gait Yes (1 pt) Mobility Assist Device Used No (0 pt) Altered Elimination No (0 pt) Score/Fall Risk Level 3 or more points = High Risk Oriented to surroundings, Hourly rounding (assess needs \T\ fall precautionary measures) done. Abuse screen: Denies threats or abuse. Denies injuries from another. Nutritional screening: No deficits noted. Tuberculosis screening: No symptoms or risk factors identified. Assessment: 14:29 General: CODE STROKE CALLED AT THIS TIME.. cm10 14:58 VAN Scoring: Arm Drift: Patients demonstrates NO arm weakness. Patient is VAN Negative. ld1 Talya Swallow Protocol Exclusion Criteria: Unable to remain alert for testing: No Brief Cognitive Screen What is your name? Normal, Where are you right now? Normal, What year is it? Normal. Oral Mechanism Examination Facial Symmetry: Normal, Motion: Normal, Lip Closure: Normal, Oral Mechanism Result: Normal. 3 oz Water Swallow Challenge: Pt able to drink all water without stopping, coughing, choking or throat clearing: Yes Result: PASS MD Notified: Will Casillas MD. TNKase (Tenecteplase) Screening: Contraindications: Patient reports onset of signs and symptoms of stroke greater than 6 hours ago:. General: Appears in no apparent distress. comfortable, Behavior is calm, cooperative, appropriate for age. Pain: Denies pain. Neuro: Level of Consciousness is awake, alert, obeys commands, Oriented to person, place, time, situation, Reports headache. Neuro: Lead Java Software Engineer are equal bilaterally Moves all extremities. Gait is unsteady, Speech is slurred, Facial symmetry appears normal, Pupils are PERRLA, Intact Babinski is positive. Cardiovascular: Capillary refill < 3 seconds Patient's skin is warm and dry. Respiratory: Airway is patent Respiratory effort is even, unlabored. GI: Abdomen is round non-distended. : No signs and/or symptoms were reported regarding the genitourinary system. EENT: No signs and/or symptoms were reported regarding the EENT system. Derm: No signs and/or symptoms reported regarding the dermatologic system. Musculoskeletal: No signs and/or symptoms reported regarding the musculoskeletal system. 15:33 Reassessment: No changes from previously documented assessment. Patient and/or family ld1 updated on plan of care and expected duration. Pain level reassessed. Vital Signs: 14:58 BP 207 / 111; Pulse 81; Resp 18; Temp 98.1(TE); Pulse Ox 97% on R/A; Height 5 ft. 7 in. ld1 ; Pain 0/10; 15:33 BP 166 / 94; Pulse 66; Resp 18; Pulse Ox 100% on R/A; ld1 16:51 BP 155 / 88; Pulse 69; Resp 18; Pulse Ox 99% on R/A; ld1 17:57 BP 159 / 100; Pulse 84; Resp 18; Pulse Ox 99% on R/A; ld1 14:58 Pain Scale: Adult ld1 NIH Stroke Scale Scores: 14:58 NIHSS Score: 1 ld1 ED Course: 14:29 Patient arrived in ED. jl7 14:[address] via wheelchair. cm10 14:36 Will Casillas MD is Attending Physician. dee 14:42 Ct Stroke Brain Wo Cont In Process Unspecified. EDMS 14:48 Head angio In Process Unspecified. EDMS 14:48 Neck Angio In Process Unspecified. EDMS 14:53 Triage completed. cm10 14:53 Arm band placed on right wrist. Patient placed in an exam room, on a stretcher. cm10 14:58 Patient has correct armband on for positive identification. Placed in gown. Bed in low ld1 position. Call light in reach. Side rails up X2. quality assurance monitor body on. Pulse ox on. NIBP on. Door closed. Noise minimized. Warm blanket given. 14:58 No provider procedures requiring assistance completed. ld1 15:02 Gena Rivers, MY is Primary Nurse. ld1 15:08 XRAY Chest (1 view) In Process Unspecified. EDMS 16:14 Brain Wo Cont In Process Unspecified. EDMS 17:49 Xavier Dinh MD is Referral Physician. dee 17:57 Patient transferred, IV remains in place. ld1 Administered Medications: 15:15 Drug: Labetalol IV 10 mg IV at per protocol once Route: IV; Rate: per protocol; Site: [facility] right antecubital; 16:54 Follow up: Response: Blood pressure is lowered; IV Status: Completed infusion ld1 15:32 Drug: NS 0.9% IV 1000 ml IV at 1000 ml once; to be given as a bolus over 60 minutes ld1 Route: IV; Rate: 1000 ml; Site: right antecubital; 16:54 Follow up: Response: No adverse reaction; IV Status: Completed infusion; IV Intake: ld1 1000ml 15:33 Drug: foLIC Acid IVPB 1 mg IVPB once Route: IVPB; Site: right antecubital; ld1 16:54 Follow up: Response: No adverse reaction ld1 16:53 Not Given (Other Intervention Used): [id number] mg IV at per protocol once over 2 mins ld1 16:54 Not Given (Other Intervention Used): [id number] mg PO once ld1 17:57 Drug: Aspirin PO Chewable Tablet 324 mg PO once; 81 mg tablets x 4 Route: PO; ld1 Medication: 14:58 VIS not applicable for this client. ld1 Intake: 16:54 IV: 1000ml; Total: 1000ml. ld1 Outcome: 17:50 Discharge ordered by . dee 17:57 Discharged to home ambulatory, with family, ld1 17:57 Condition: stable 17:57 Discharge instructions given to patient, Instructed on discharge instructions, follow up and referral plans. Demonstrated understanding of instructions, follow-up care, 17:58 Patient left the ED. ld1 NIH Stroke Scale - NIH Stroke Score Date: 01/17/2025 Time: 14:58 Total Score = 1 10. Dysarthria (speech clarity - read or repeat words) - 1(Mild to Moderate) 11. Extinction and Inattention (visual/tactile/auditory/spatial/personal) - 0(No abnormality) 1a. Level of Consciousness (LOC) - 0(Alert) 1b. Level of Consciousness (LOC) (Month \T\ Age) - 0(Both) 1c. LOC Commands (Open \T\ Closes Eyes/Naturalist) - 0(Both) 2. Best Gaze (Lateral Gaze Paresis) - 0(Normal) 3. Visual Field Loss - 0(No visual loss) 4. Facial Palsy - 0(Normal) 5a. Left Arm: Motor (10-second hold) - 0(No drift) 5b. Right Arm: Motor (10-second hold) - 0(No drift) 6a. Left Leg: Motor (5-second hold - always test supine) - 0(No drift) 6b. Right Leg: Motor (5-second hold - always test supine) - 0(No drift) 7. Limb Ataxia (finger/nose \T\ heel/fuentes - test with eyes open) - 0(Absent) 8. Sensory Loss (pinprick arms/legs/face) - 0(Normal) 9. Best Language: Aphasia (description/naming/reading) - 0(No aphasia) Initials: ld1 Signatures: Dispatcher [employer] EDWill Brown MD MD cha Leal, Jahala, RN RN jl7 Gena Rivers RN RN ld1 Elsa Jacob RN RN cm10 Corrections: (The following items were deleted from the chart) 15:32 15:15 Labetalol IV 20 mg IV at per protocol in right antecubital over 2 mins ld1ld1
[2025-01-17 18:40] VITALS: TEMP 98.1
[2025-01-17 18:42] VITALS: O2SAT 99
[2025-01-17 18:43] VITALS: BP 159/100
--- NOTE | 2025-01-18 12:33 | EKG ---
Test Date: 2025-01-17 Test Time: 17:51:23 Software Technical Lead: Miguelina VICKERS MEASUREMENT RESULTS: Intervals: Rate: 74 [place]: 156 QRSD: 94 QT: 416 QTc: 461 [place]: P: 58 [place]: 156 QRS: 43 T: 18 INTERPRETIVE STATEMENTS: Normal sinus rhythm Normal ECG Compared to ECG 09/07/2016 06:48:57 No significant changes Electronically Signed On 01-18-25 12:32:06 CDT by Shawn Barahona
== END 2025-01-17 17:58 | disposition home or self-care (01) ==
LOC: ER 14:23
DX: R53.1 Weakness (principal); R51.9 Headache, unspecified; R41.82 Altered mental status, unspecified; I10 Essential (primary) hypertension
CPT/HCPCS: 96365; 93005; 85025; 81001; 80048; 36415; 83735; 85610; 82565; 82947; 80076; 84484; 83880; 70496; 70498; 70450; 71045; 70551; 96375; 99285; 96366; Q9967; J7030

== ENCOUNTER 2025-07-15 09:52 | Emergency (ER) | payer BC ==
--- OUTSIDE RECORDS SUMMARY | 2025-07-15 09:55 | XMS REPORT | Continuity of Care Document ---
Author Name Unknown Address [address] [facility] [facility] [address] [place] [address] Organization [facility] [place] Address [address] [facility] [facility] 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 Name Role Phone MINH GIBSON SREEDHAR Primary Care Physician SRINATH Lane Attending Clinician Unavailable Nubia PIMENTEL, Srinath Thorpe Attending Clinician [phone] HUMBERTO MONTALVO Attending Clinician UnavailMel Tolbert MD Attending Clinician [phone] Doctor Unassigned, [place] Attending Clinician U Mary Mota PA-C Attending Clinician [phone] REDDY CABRERA Attending Clinician Unavailable Therapy, [facility]fusion Attending Clinician Unavailable Reddy Cabrera MD Attending Clinician [phone] SRINATH DELACRUZ Admitting Clinician Unavailable Payers Payer Name Policy Type Policy Number Effective Date Expirati on Date Source [employer] [place] [employer] [place] [id number] 2020 00:00:00 Problems Condition Name Condition Details Condition Category Status Onset Date Resolution Date Last Treatment Date Treating Clinician Comments Source Excessive menstruati on with irregular cycle Excessive Menstruati on with Irregular Cycle Problem Active 05-03 00:00: 00 [facility] Cyst of ovary Cyst of Ovary Problem Active 05-02 00:00: 00 [facility] Menometror rhagia Menometror rhagia Problem Active 05-02 00:00: 00 [facility] Iron deficiency anemia due to blood loss Iron Deficiency Anemia Due to Blood Loss Problem Active 2025-0 7-15 00:00: 00 [facility] Bipolar disorder Bipolar Disorder Problem Active 7-15 00:00: 00 [facility] Anxiety Anxiety Problem Active 7 00:00: 00 [facility] Depressive disorder Depressive Disorder Problem Active 7- 00:00: 00 [facility] Hypertensi ve disorder Hypertensi ve Disorder Problem Active 4-03 00:00: 00 [facility] Gastro-eso phageal reflux disease with esophagiti s Gastro-eso phageal Reflux Disease with Esophagiti s Problem Active 4-03 00:00: 00 [facility] Dysmenorrh ea Dysmenorrh ea Problem Active 4-03 00:00: 00 [facility] Allergic dispositio n Allergic Dispositio n Problem Active 4- 00:00: 00 [facility] Body mass index 40+ - severely obese Body Mass Index 40+ - Severely Obese Problem Active 4-03 00:00: 00 [facility] Cyst of left ovary Cyst of Left Ovary Problem Active 4-03 00:00: 00 [facility] Episodic migraine Episodic Migraine Problem Active 4- 00:00: 00 [facility] Mixed urinary incontinen ce Mixed Urinary Incontinen ce Problem Active 2020-10 00:00: 00 [facility] Overactive urinary bladder Overactive Urinary Bladder Problem Active 2020-10 00:00: 00 [facility] Severe obesity Severe Obesity Problem Active 2020-10 00:00: 00 [facility] Morbid obesity with body mass index of 40.0-49.9 Morbid obesity with body mass index of 40.0-49.9 Disease Active 2020-10 00:00: 00 [facility] Menorrhagi a with irregular cycle Menorrhagi a with irregular cycle Disease Active 2020-10 00:00: 00 [facility] Mixed stress and urge urinary incontinen ce Mixed stress and urge urinary incontinen ce Disease Active 2020-10 00:00: 00 [facility] History of migraine History of Migraine Problem Active 01-24 00:00: 00 [facility] Allergies, Adverse Reactions, Alerts Allergy Name Allergy Type Status Severity Reaction(s) Onset Date Inactive Date Treating Clinician Comments Source NO KNOWN ALLERGIE S Drug Class Active [facility] Social History Social Habit Start Date Stop Date Quantity Comments Source History SDOH Alcohol Std Drinks [facility] History SDOH Alcohol Binge [facility] History SDOH Alcohol Comment [facility] Alcohol intake 2021-11-22 00:00:00 2021-11-22 00:00:00 Lifetime non-drinker (finding) [facility] Tobacco use and exposure 2021-09-27 00:00:00 2021-09-27 00:00:00 Never used [facility] History SDOH Alcohol Frequency 2021-09-27 00:00:00 2021-09-27 00:00:00 1 [facility] Sex Assigned At 1980 00:00:00 1980 00:00:00 [facility] Smoking Status Start Date Stop Date Source Never Smoker [facility] Medications Ordered Medication Name Filled Medication Name Start Date Stop Date Current Medication? Ordering Clinician Indication Dosage Frequency Signature (SIG) Comments Components Source lisinopril 20 mg-hydrochl orothiazide 12.5 mg tablet Take 1 tablet every day by oral route for 30 days. lisinopril 20 mg-hydrochl orothiazide 12.5 mg tablet Take 1 tablet every day by oral route for 30 days. 04-12 00:00: 00 No lisinopril 20 mg-hydroch lorothiazi de 12.5 mg tablet Take 1 tablet every day by oral route for 30 days. [facility] Wegovy 0.25 mg/0.5 mL subcutaneou s pen injector Inject 0.5 mL every week by subcutaneou s route for 28 days. Wegovy 0.25 mg/0.5 mL subcutaneou s pen injector Inject 0.5 mL every week by subcutaneou s route for 28 days. 04-12 00:00: 00 No Wegovy 0.25 mg/0.5 mL subcutaneo us pen injector Inject 0.5 mL every week by subcutaneo us route for 28 days. [facility] metroNIDAZO LE 500 mg tablet 2020-10 00:00: 00 Yes [id number] 500mg Take 1 tablet by mouth every 12 (twelve) hours. [facility] hydrOXYzine 50 mg capsule 2020-10 00:00: 00 Yes TAKE ONE (1) CAPSULE(S) BY MOUTH 30 MINUTES PRIOR TO PROCEDURE. [facility] lisinopriL 20 mg tablet 2020-10 00:00: 00 Yes 20mg Take 20 mg by mouth daily. [facility] simvastatin 20 mg tablet 2020-10 00:00: 00 Yes 20mg Take 20 mg by mouth at bedtime. [facility] pantoprazol e 40 mg EC tablet 07-16 00:00: 00 Yes 40mg Take 40 mg by mouth every morning. [facility] acetaminoph en 300 mg-codeine 30 mg tablet Take 1 tablet every 6 hours by oral route for 2 days, for take 1 tablet 1 hr prior to procedure and then every 6 hrs after as needed. acetaminoph en 300 mg-codeine 30 mg tablet Take 1 tablet every 6 hours by oral route for 2 days, for take 1 tablet 1 hr prior to procedure and then every 6 hrs after as needed. No 1 Q6H acetaminop hen 300 mg-codeine 30 mg tablet Take 1 tablet every 6 hours by oral route for 2 days, for take 1 tablet 1 hr prior to procedure and then every 6 hrs after as needed. [facility] Celebrex 200 mg capsule Take 1 capsule every day by oral route as directed for 1 day. Celebrex 200 mg capsule Take 1 capsule every day by oral route as directed for 1 day. No 1capsul e(s) Q1D Celebrex 200 mg capsule Take 1 capsule every day by oral route as directed for 1 day. [facility] 10 mg tablet Take 1 tablet as needed by oral route as directed for 2 days. Valium 10 mg tablet Take 1 tablet as needed by oral route as directed for 2 days. No 1 Valium 10 mg tablet Take 1 tablet as needed by oral route as directed for 2 days. [facility] Vital Signs Vital Name Observation Time Observation Value Comments S ource Height 2025-05-02 00:00:00 70 [in_i] [facility] Body Weight 2025-05-02 00:00:00 299 [lb_av] [facility] BP Diastolic 2025-05-02 00:00:00 88 mm[Hg] [facility] BP Systolic 2025-05-02 00:00:00 130 mm[Hg] [facility] BMI (Body Mass Index) 2025-05-02 00:00:00 42.9 kg/m2 [facility] Systolic blood pressure 2021-11-22 14:14:00 127 mm[Hg] [place] [facility] Diastolic blood pressure 2021-11-22 14:14:00 85 mm[Hg] [facility] Heart rate 2021-11-22 14:14:00 90 /min [facility] Body temperature 2021-11-22 14:14:00 36.44 Lexi [facility] Respiratory rate 2021-11-22 14:14:00 18 /min [facility] Body height 2021-11-22 14:14:00 177.8 cm [facility] Body weight 2021-11-22 14:14:00 130.636 kg [facility] BMI 2021-11-22 14:14:00 41.32 kg/m2 [facility] Procedures Procedure Date / Time Performed Performing Clinicia n Source Operative Procedure on Ankle 2017-10-19 00:00:00 [facility] Ligation of Fallopian Tube 2007-10-19 00:00:00 [facility] Encounters Start Date/Time End Date/Time Encounter Type Admission Type Attending Clinicians Care Facility Care Department Encounter ID Source 2022-01-29 12:31:09 Outpatient R SRINATH DELACRUZ [facility] [id number] [facility] 2025-05-02 00:00:00 2025-05-02 00:00:00 [place]: [address], [facility] [address], [place] [address] , Ph. [facility] - GC_[id number]_Dianne sofie Mcgee* [id number] [facility] 2022-01-09 00:00:00 2022-01-09 00:00:00 [facility] 1.840.114 350.1.13.10 4.2.7.2.686 [id number] 134 [id number] [facility] 2021-11-22 08:00:00 2021-11-22 08:48:11 Office Visit Srinath Delacruz [facility] 1.2840.114 350.1.13.10 4.2.7.2.686 [id number] [facility] 2021-11-22 08:00:00 2021-11-22 08:48:11 Outpatient R SRINATH DELACRUZ [facility] [id number] [facility] 2021-11-22 08:00:00 2021-11-22 08:00:00 Outpatient R SRINATH DELACRUZ [facility] [id number] [facility] 2021-11-22 00:00:00 2021-11-22 00:00:00 Prep For Surgery Srinath Delacruz [facility] 1.840.114 350.1.13.10 4.2.7.2.686 [id number] 134 [id number] [facility] 2021-10-29 13:40:00 2021-10-29 13:40:00 Outpatient R MONTALVORONALDOIG [facility] [id number] [facility] 2021-10-29 13:40:00 2021-10-29 13:40:00 Outpatient R HUMBERTO MONTALVO [facility] [id number] [facility] 2021-10-23 09:00:00 2021-10-23 09:00:00 Outpatient R SRINATH DELACRUZ [facility] [id number] [facility] 2021-10-14 13:30:00 2021-10-14 23:59:00 Hospital Encounter Srinath Delacruz [facility] 1..840.114 350.1.13.10 4.2.7.2.686 [id number] [facility] 2021-10-14 16:00:00 2021-10-14 17:03:22 Outpatient R SRINATH DELACRUZ [facility] [id number] [facility] 2021-10-14 16:00:00 2021-10-14 17:03:22 Office [facility]rin[facility] Delac[facility] [id number] 350.1.13.10 4.2.7.2.686 [id number] 134 [id number] [facility] 2021-10-14 16:00:00 2021-10-14 16:00:00 Outpatient R SRINATH DELACRUZ [facility] [id number] [facility] 2021-10-14 15:00:00 2021-10-14 15:30:00 Office Visit Mel Mcgee [facility] 1..840.114 350.1.13.10 4.2.7.2.686 [id number] [facility] 2021-10-14 14:30:00 2021-10-14 14:30:00 Outpatient R MEL MCGEE [facility] [id number] [facility] 2021-10-14 14:30:00 2021-10-14 14:30:00 Outpatient R SRINATH DELACRUZ [facility] [id number] [facility] 2021-10-07 00:00:00 2021-10-07 00:00:00 Orders Only Doctor Unassigned, [place] [facility] 1.840.114 350.1.13.10 4.2.7.2.686 [id number] [facility] 2021-10-07 00:00:00 2021-10-07 00:00:00 Case Management Mary Ayers [facility] 1..840.114 350.1.13.10 4.2.7.2.686 [id number] [facility] 2021-10-01 00:00:00 2021-10-01 00:00:00 Telephone Nubia Srinath Maurilio [facility] 1.2.840.114 350.1.13.10 4.2.7.2.686 [id number] 134 [id number] [facility] 2021-09-27 08:17:31 2021-09-27 09:39:36 Office Visit Srinath Delacruz Maur[facility] 1.2.840.114 350.1.13.10 4.2.7.2.686 [id number] [facility] 2021-09-27 08:00:00 2021-09-27 09:39:36 Outpatient R NUBIA [facility] [id number] [facility] 2021-09-27 08:00:00 2021-09-27 09:39:36 [id number] 2021-09-27 08:00:00 2021-09-27 08:00:00 Outpatient R NUBIA [facility] [id number] [facility] 2021-09-27 00:00:00 2021-09-27 00:00:00 Orders Only Doctor Unassigned, [place] [facility] 1.2840.114 350.1.13.10 4.2.7.2.686 [id number] [facility] 2021-06-18 00:00:00 2021-06-18 00:00:00 Orders Only Doctor Unassigned, [place] [facility] 1.2840.114 350.1.13.10 4.2.7.2.686 [id number] [facility] 2021-06-15 11:00:00 2021-06-15 11:00:00 Outpatient R REDDY CABRERA [facility] [id number] [facility] 2021-06-15 08:43:48 2021-06-15 09:43:48 Nurse Visit Therapy, Adc Covid Reddy Hodge [facility] 1.2.840.114 350.1.13.10 4.2.7.2.686 [id number] [facility] Results Test Description Test Time Test Comments Results Resul t Comments Source SCR MAMM BILATERAL SANTIAGO CAD DIGITAL 2021-09-02 11:40:03 Name: Jin : 1980 Sex: F - SCR MAMM BILATERAL SANTIAGO CAD DIGITALBILATERAL [facility] [place] DIGITAL SCREENING MAMMOGRAM 3D/2D WITH CAD: 08/28/2021LINICAL: Asymptomatic. Digital breast tomosynthesis was performed in addition to routine CC and MLO views. Current mammographic images were evaluated by [employer] CAD (computer-aided detection) software. No prior exams were available for comparison. The tissue of both breasts is heterogeneously dense. This may lower the sensitivity of mammography. No suspicious mass, architectural distortion, malignant type calcification, or lymph node abnormality detected. IMPRESSION: NEGATIVEThere is no mammographic evidence of malignancy. Resume annual screening mammography in one year. Ry Giron M.D. et/penrad:09/02/2021 11:40:03 Returned Item Clerk: Minh Garcia MM, [facility] Mammographyletter sent: BIRADS 1-2 Normal Mammogram BI-RADS: 1 Negative
[2025-07-15] MEDS ORDERED: METOCLOPRAMIDE 10 MG/2mL INJ ONE (10:26)
[2025-07-15] MEDS ORDERED: ONDANSETRON 4 MG/2 ML VIAL ONE (10:26)
[2025-07-15] MEDS ORDERED: NA CHLORIDE 0.9% 1,000 ML ONE (10:27)
[2025-07-15] MEDS ORDERED: DIPHENHYDRAMINE 50 MG/ML VIAL ONE (10:27)
[2025-07-15] MEDS ORDERED: KETOROLAC 30 MG/ML INJ ONE (10:27)
--- NOTE | 2025-07-15 10:47 | RAD REPORT ---
EXAM: CT brain without contrast HISTORY: Headache COMPARISON: January 2025 TECHNIQUE: Multiple contiguous axial images were obtained and a CT of the brain without contrast.. Sagittal and coronal reconstruction performed. Automated exposure control, adjustment of the mA and/or kV according to patient size, and/or iterative reconstruction. Unless otherwise specified, incidental f indings do not require dedicated imaging follow-up FINDINGS: An intracranial bleed is not seen Ventricles are normal caliber No extra-axial fluid collection noted No significant hypodensity within the brain No fluid within the visualized sinuses or mastoids noted. IMPRESSION: No acute intracranial abnormality noted. If the patient continues to have symptoms to suggest an acute intracranial abnormality then MRI of th e brain would be recommended.
[2025-07-15 10:57] LABS: Absolute Lymphocytes (CBC) 1.5 K/uL (0.7-4.9); Hematocrit 37.7 % (36.0-45.0); Hemoglobin 12.6 g/dL (12.0-15.0); MCH 24.2 pg (27.0-35.0); MCHC 33.5 g/dL (32.0-36.0); MCV 72.4 fL (80-100); MPV 7.9 fL (7.6-11.3); Nucleated RBC Absolute Count 0.0 (0-0); Nucleated Red Blood Cells % 0.0 % (0-0); RBC Red Blood Cell Count 5.21 M/uL (3.86-4.86); White Blood Count 8.60 thou/uL (4.3-10.9)
[2025-07-15 11:16] LABS: ALT/SGPT 33 U/L (13-56); Albumin 3.7 g/dL (3.4-5.0); Albumin/Globulin Ratio 0.9 (1.1-1.8); Alkaline Phosphatase 73 U/L (45-117); Anion Gap 11.0 mEq/L (5.0-15.0); BUN Blood Urea Nitrogen 16 mg/dL (7-18); Globulin 4.0 g/dL (2.3-3.5); Glucose Level 108 mg/dL (74-106); Potassium 4.0 mEq/L (3.5-5.1); Troponin High Sensitivity 3.2 pg/mL (<58.9)
[2025-07-15 11:19] LABS: AST/SGOT < 10 U/L (15-37)
--- NOTE | 2025-07-15 12:00 | EDPHYS ---
Physician Documentation [facility] Name: Alexandra Del Valle Age: 45 yrs Sex: Female : 1980 Arrival Date: 07/15/2025 Time: 09:52 Bed 13 Private MD: ED Physician Syed Moran HPI: 07/15 10:40 This 45 yrs old Female presents to ER via Ambulatory with complaints of dr5 Headache. 10:40 Onset: The symptoms/episode began/occurred last night. 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 Patient reports she has migraines with this in the past. Patient states that she took 2 Excedrin which relieved the pain down to a 5 out of 10. Patient reports that she has not seen Dr. Dinh since her last visit in ER that was on January 17, 2025. Patient denies numbness, tingling, left or right sided weakness.. ALTERATIONS SEWER: 10:03 LMP 03/2025, unknown af3 Historical: - Allergies: 10:16 No Known Allergies; af3 - PMHx: 10:16 Hypertension; Migraines; af3 - Immunization history:: Adult Immunizations unknown. - Infectious Disease History:: Denies. - Social history:: Smoking status: unknown. ROS: 10:40 Constitutional: as per hpi dr5 Exam: 10:40 Constitutional: This is a well developed, well nourished patient who is awake, alert, dr5 and in no acute distress. Head/Face: Normocephalic, atraumatic. Eyes: Pupils equal round and reactive to light, extra-ocular motions intact. Lids and lashes normal. Conjunctiva and sclera are non-icteric and not injected. Cornea within normal limits. Periorbital areas with no swelling, redness, or edema. Neck: Trachea midline, no thyromegaly or masses palpated, and no cervical lymphadenopathy. Supple, full range of motion without nuchal rigidity, or vertebral point tenderness. No Meningismus. Chest/axilla: Normal chest wall appearance and motion. Nontender with no deformity. No lesions are appreciated. Cardiovascular: Regular rate and rhythm with a normal S1 and S2. Normal PMI, no JVD. No pulse deficits. Respiratory: Lungs have equal breath sounds bilaterally, clear to auscultation. No rales, rhonchi or wheezes noted. No increased work of breathing, no retractions or nasal flaring. Back: No spinal tenderness. No costovertebral tenderness. Full range of motion. Skin: Warm, dry with normal turgor. Normal color with no rashes, no lesions, and no evidence of cellulitis. MS/ Extremity: Pulses equal, no cyanosis. Neurovascular intact. Full, normal range of motion. Neuro: Awake and alert, GCS 15, oriented to person, place, time, and situation. Cranial nerves II-XII grossly intact. Motor strength 5/5 in all extremities. Sensory grossly intact. Cerebellar exam normal. Normal gait. Vital Signs: 10:03 BP 134 / 91; Pulse 81; Resp 18; Temp 97; Pulse Ox 99% on R/A; Weight 113.4 kg; Height 5 af3 ft. 10 in. ; Pain 5/10; 12:20 BP 128 / 86; Pulse 78; Resp 20; Temp 98; Pulse Ox 100% on R/A; kj2 10:03 Body Mass Index 35.87 (113.40 kg, 177.8 cm) af3 10:03 Pain Scale: Adult af3 NIH Stroke Scale Scores: 10:40 NIHSS Score: 0 dr5 [place] Coma Score: 12:01 Eye Response: spontaneous(4). Motor Response: obeys commands(6). Verbal Response: dr5 oriented(5). Total: 15. MDM: 09:56 Medical Screening Exam initiated dr5 12:01 Differential diagnosis: cluster headache, intracerebral hemorrhage, migraine, neoplasm, dr5 sinusitis. Data reviewed: vital signs, nurses notes, lab test result(s), CBC, white blood cell count, hemoglobin, hematocrit, platelets, electrolytes, sodium, potassium, chloride, serum bicarbonate, BUN, creatinine, serum glucose, EKG, radiologic studies, CT scan. Consideration of Admission/Observation Escalation of care including admission/observation considered. Escalation considered patient found to have intracranial hemorrhage. I considered the following discharge prescriptions or medication management in the emergency department I discussed and recommended Over The Counter medications, Medications were administered in the Emergency Department. See MAR. Independent interpretation of the following test(s) in the Emergency Department CT Scan: My interpretation is Independent interpretation of CT scan does not reveal obvious mass or brain bleed. Historians other than the Patient: Spouse/Significant Other: Significant other at bedside. Care significantly affected by the following chronic conditions: Hypertension, Migraines. Care significantly affected by the following Social Determinants of Health: Poor access to healthcare and/or lack of insurance, Poor access to transportation, Problems related to employment. Counseling: I had a detailed discussion with the patient and/or guardian regarding the historical points, exam findings, and any diagnostic results supporting the discharge/admit diagnosis, the presence of at least one elevated blood pressure reading (>120/80) during this emergency department visit, lab results, radiology results, the need for outpatient follow up, for definitive care, a family practitioner, a neurologist, to return to the emergency department if symptoms worsen or persist or if there are any questions or concerns that arise at home. Medication response: Toradol, Zofran, normal saline, Reglan. Response to treatment: the patient's symptoms have resolved after treatment, the patient's condition has returned to base line. Special discussion: Based on the patient's history, exam and DX evaluation, there is no indication for emergent intervention or inpatient TX. It is understood by the patient/guardian that if the SXs persist or worsen they need to return immediately for re-evaluation. I discussed with the patient/guardian in detail that at this point there is no indication for admission to the hospital. It is understood, however, that if the symptoms persist or worsen the patient needs to return immediately for re-evaluation. Based on the history and exam findings, there is no indication for further emergent testing or inpatient evaluation. I discussed with the patient/guardian the need to see the neurologist for further evaluation of the symptoms. ED course: Patient's headache/migraine has resolved and feeling much better. Will prescribe patient Zofran, Imitrex, Ubrelvy as patient has been on it before and requesting it. Recommended patient follow-up with neurologist. All questions answered. Strict ER precautions given. Recommend increase hydration.. 07/15 10:15 Order name: CBC with Diff; Complete Time: 11:07/15 10:15 Order name: Troponin HS; Complete Time: 07/15 10:15 Order name: CMP; Complete Time: 07/15 10:15 Order name: CT Head Brain wo Cont; Complete Time: 10:57 dr5 07/15 10:15 Order name: Cardiac monitoring; Complete Time: 11:06 07/15 10:15 Order name: EKG - Nurse/Tech; Complete Time: 10:53 dr5 07/15 10:15 Order name: IV Saline Lock; Complete Time: 10:49 dr5 07/15 10:15 Order name: Labs collected and sent; Complete Time: 10:49 dr5 07/15 10:15 Order name: O2 Per Protocol; Complete Time: 10: dr5 07/15 10:15 Order name: O2 Sat Monitoring; Complete Time: 10:49 dr5 EC:50 Rate is 71 beats/min. Rhythm is regular. QRS [place] is Normal. CA interval is normal at dr5 156 msec. QRS interval is normal at 88 msec. QT interval is normal at 418 msec. Clinical impression: Normal ECG and No evidence of ischemia. Administered Medications: 10:48 Drug: metoCLOPramide IVP 10 mg IVP once; over 1 to 2 minutes Route: IVP; Site: right af3 antecubital; 12:31 Follow up: Response: No adverse reaction kj2 10:48 Drug: diphenhydrAMINE IVP 25 mg IVP once Route: IVP; Site: right antecubital; af3 12:31 Follow up: Response: No adverse reaction kj2 10:49 Drug: NS 0.9% IV 1000 ml IV at 1000 ml once; to be given as a bolus over 60 minutes af3 Route: IV; Rate: 1000 ml; Site: right antecubital; 12:32 Follow up: IV Status: Completed infusion kj2 12:32 Follow up: IV Status: Completed infusion; IV Intake: 1000ml kj2 10:49 Drug: Ondansetron IVP 4 mg IVP once; over 2 minutes Route: IVP; Site: right antecubital;af3 12:31 Follow up: Response: No adverse reaction kj2 10:49 Drug: Ketorolac IVP 15 mg IVP once Route: IVP; Site: right antecubital; af3 12:31 Follow up: Response: No adverse reaction kj2 Disposition: 13:27 Co-signature as Attending Physician, Syed Moran MD I reviewed the patient's care rn provided by the Advanced Practice Provider and agree with the diagnosis and treatment plan. Disposition Summary: 07/15/25 11:59 Discharge Ordered Notes: Location: Home dr5 Condition: Stable dr5 Diagnosis - Migraine without aura, not intractable dr5 Followup: dr5 - With: Emergency Department - When: As needed - Reason: Worsening of condition Followup: dr5 - With: Xavier Dinh MD - When: 1 - 2 days - Reason: Recheck today's complaints, Continuance of care, Re-evaluation by your physician Discharge Instructions: - Discharge Summary Sheet dr5 - Migraine Headache dr5 Forms: - Medication Reconciliation Form dr5 - Patient Portal Instructions dr5 - Leadership Thank You Letter dr5 Prescriptions: - Ubrelvy - administer 100 milligram ORAL route as directed 50 to 100 mg as a single dose; dr5 if symptoms persist or return, may repeat dose after =2 hours. Maximum: 200 mg per 24 hours; 10 tablet; Refills: 0, Product Selection Permitted - Imitrex 25 mg Oral Tablet - take 1 tablet ORAL route one time - x 1 dose with fluids as early as possible dr5 after the onset of a migraine attack; if headache returns, the dose may be repeated after 2 hours, not to exceed a total daily dose of 8 tablets; 12 tablet; Refills: 0, Product Selection Permitted - Zofran 4 mg Oral Tablet - take 1 tablet ORAL route every 12 hours As needed; 20 tablet; Refills: 0, dr5 Product Selection Permitted NIH Stroke Scale - NIH Stroke Score Date: 07/15/2025 Time: 10:40 Total Score = 0 10. Dysarthria (speech clarity - read or repeat words) - 0(Normal) 11. Extinction and Inattention (visual/tactile/auditory/spatial/personal) - 0(No abnormality) 1a. Level of Consciousness (LOC) - 0(Alert) 1b. Level of Consciousness (LOC) (Month \T\ Age) - 0(Both) 1c. LOC Commands (Open \T\ Closes Eyes/Gang Worker) - 0(Both) 2. Best Gaze (Lateral Gaze Paresis) - 0(Normal) 3. Visual Field Loss - 0(No visual loss) 4. Facial Palsy - 0(Normal) 5a. Left Arm: Motor (10-second hold) - 0(No drift) 5b. Right Arm: Motor (10-second hold) - 0(No drift) 6a. Left Leg: Motor (5-second hold - always test supine) - 0(No drift) 6b. Right Leg: Motor (5-second hold - always test supine) - 0(No drift) 7. Limb Ataxia (finger/nose \T\ heel/fuentes - test with eyes open) - 0(Absent) 8. Sensory Loss (pinprick arms/legs/face) - 0(Normal) 9. Best Language: Aphasia (description/naming/reading) - 0(No aphasia) Initials: dr5 Signatures: Dispatcher [employer] EDMS Syed Moran MD MD rn Amezquita, MY Solo RN af3 Phoenix Garduno, FOOD SERVICE DRIVER-C FOOD SERVICE DRIVER-Cdr5 Gerda Joyce RN kj2 Corrections: (The following items were deleted from the chart) 10:16 10:16 CBC+H.LAB.BRZ ordered. EDMS EDMS 10:16 10:16 Troponin High Sensitivity+C.LAB.BRZ ordered. EDMS EDMS 10:16 10:16 COMPREHENSIVE METABOLIC PANEL+C.LAB.BRZ ordered. EDMS EDMS 10:16 10:16 Head Brain Wo Cont+CT.RAD.BRZ ordered. EDMS EDMS
--- NOTE | 2025-07-15 12:00 | ER ---
Nurse's Notes [facility] Name: Alexandra Del Valle Age: 45 yrs Sex: Female : 1980 Arrival Date: 07/15/2025 Time: 09:52 Bed 13 Private MD: Diagnosis: Migraine without aura, not intractable Presentation: 07/15 10:15 Chief complaint: Patient states: hacking cough around 1am this morning, sharp shooting af3 pain from shoulder to left side of neck/ head. Also c/o lightheaded and dizzy. Coronavirus screen: At this time, the client does not indicate any symptoms associated with coronavirus-19. Ebola Screen: No symptoms or risks identified at this time. Initial Sepsis Screen: Does the patient meet any 2 criteria? No. Patient's initial sepsis screen is negative. Does the patient have a suspected source of infection? No. Patient's initial sepsis screen is negative. Risk Assessment: Do you want to hurt yourself or someone else? Patient reports no desire to harm self or others. Onset of symptoms was July 15, 2025. 10:15 Method Of Arrival: Ambulatory af3 10:15 Acuity: AMANDA 4 af3 Triage Assessment: 10:03 Headache History: The patient has had previous headaches and this one is more severe af3 than previous episodes. 10:16 General: Appears in no apparent distress. uncomfortable, well groomed, well developed, af3 Behavior is calm, cooperative, appropriate for age. Pain: Complains of pain in left cheek, left spiritism and left jaw Pain currently is 5 out of 10 on a pain scale. Pain began 1am this morning Also complains of no other associated symptoms. Neuro: Level of Consciousness is awake, alert, obeys commands, Oriented to person, place, time, situation, Appropriate for age. Cardiovascular: Patient's skin is warm and dry. Respiratory: Airway is patent Respiratory effort is even, unlabored, Respiratory pattern is regular, symmetrical. EXERCISE INSTRUCT: 10:03 LMP 03/2025, unknown af3 Historical: - Allergies: 10:16 No Known Allergies; af3 - PMHx: 10:16 Hypertension; Migraines; af3 - Immunization history:: Adult Immunizations unknown. - Infectious Disease History:: Denies. - Social history:: Smoking status: unknown. Screenin:18 [facility] ED Fall Risk Assessment (Adult) History of falling in the last 3 months, af3 including since admission No falls in past 3 months (0 pts) Confusion or Disorientation No (0 pts) Intoxicated or Sedated No (0 pts) Impaired Gait No (0 pts) Mobility Assist Device Used No (0 pt) Altered Elimination No (0 pt) Score/Fall Risk Level 0 - 2 = Low Risk Oriented to surroundings, Maintained a safe environment, Educated pt \T\ family on fall prevention, incl call for assistance when getting out of bed. Abuse screen: Denies threats or abuse. Denies injuries from another. Nutritional screening: No deficits noted. Tuberculosis screening: No symptoms or risk factors identified. Assessment: 10:18 General: see triage assessment . af3 12:10 General: Appears. Pain: Complains of pain in face and left jaw and left spiritism and left kj2 cheek Pain currently is 0 out of 10 on a pain scale. Neuro: Level of Consciousness is awake, alert, obeys commands, Oriented to person, place, time, situation. Cardiovascular: Patient's skin is warm and dry. Respiratory: Airway is patent Respiratory effort is unlabored. GI: No signs and/or symptoms were reported involving the gastrointestinal system. : No signs and/or symptoms were reported regarding the genitourinary system. 12:15 Reassessment: Patient appears in no apparent distress at this time. Patient and/or kj2 family updated on plan of care and expected duration. Pain level reassessed. Patient is alert, oriented x 3, equal unlabored respirations, skin warm/dry/pink. Vital Signs: 10:03 BP 134 / 91; Pulse 81; Resp 18; Temp 97; Pulse Ox 99% on R/A; Weight 113.4 kg; Height 5 af3 ft. 10 in. ; Pain 5/10; 12:20 BP 128 / 86; Pulse 78; Resp 20; Temp 98; Pulse Ox 100% on R/A; kj2 10:03 Body Mass Index 35.87 (113.40 kg, 177.8 cm) af3 10:03 Pain Scale: Adult af3 [place] Coma Score: 12:01 Eye Response: spontaneous(4). Motor Response: obeys commands(6). Verbal Response: dr5 oriented(5). Total: 15. NIH Stroke Scale Scores: 10:40 NIHSS Score: 0 dr5 ED Course: 09:53 Patient arrived in ED. ts1 09:54 Phoenix Garduno FNP-C is [facility]. dr5 09:54 Syed Moran MD is Attending Physician. dr5 10:03 Arm band placed on. af3 10:15 Germania Amezquita, MY is Primary Nurse. af3 10:16 Triage completed. af3 10:18 Patient has correct armband on for positive identification. Bed in low position. Call af3 light in reach. Provided Education on: call light use . 10:18 No provider procedures requiring assistance completed. af3 10:29 CT Head Brain wo Cont In Process Unspecified. EDMS 10:49 Inserted saline lock: 20 gauge in right antecubital area, using aseptic technique. af3 Blood collected. Flushed with 10 mL NS. 10:53 EKG done, by ED staff, reviewed by Phoenix BRYANT. em1 11:59 Xavier Dinh MD is Referral Physician. dr5 12:32 IV discontinued, intact, bleeding controlled, No redness/swelling at site. Pressure kj2 dressing applied. Administered Medications: 10:48 Drug: metoCLOPramide IVP 10 mg IVP once; over 1 to 2 minutes Route: IVP; Site: right af3 antecubital; 12:31 Follow up: Response: No adverse reaction kj2 10:48 Drug: diphenhydrAMINE IVP 25 mg IVP once Route: IVP; Site: right antecubital; af3 12:31 Follow up: Response: No adverse reaction kj2 10:49 Drug: NS 0.9% IV 1000 ml IV at 1000 ml once; to be given as a bolus over 60 minutes af3 Route: IV; Rate: 1000 ml; Site: right antecubital; 12:32 Follow up: IV Status: Completed infusion kj2 12:32 Follow up: IV Status: Completed infusion; IV Intake: 1000ml kj2 10:49 Drug: Ondansetron IVP 4 mg IVP once; over 2 minutes Route: IVP; Site: right antecubital;af3 12:31 Follow up: Response: No adverse reaction kj2 10:49 Drug: Ketorolac IVP 15 mg IVP once Route: IVP; Site: right antecubital; af3 12:31 Follow up: Response: No adverse reaction kj2 Medication: 12:33 VIS not applicable for this client. kj2 Intake: 12:32 IV: 1000ml; Total: 1000ml. kj2 Outcome: 11:59 Discharge ordered by . dr5 12:32 Discharged to home ambulatory, with family, kj2 12:32 Condition: stable 12:32 Discharge instructions given to patient, family, Instructed on discharge instructions, follow up and referral plans. Demonstrated understanding of instructions, follow-up care, Prescriptions given X 3, 12:33 Patient left the ED. kj2 NIH Stroke Scale - NIH Stroke Score Date: 07/15/2025 Time: 10:40 Total Score = 0 10. Dysarthria (speech clarity - read or repeat words) - 0(Normal) 11. Extinction and Inattention (visual/tactile/auditory/spatial/personal) - 0(No abnormality) 1a. Level of Consciousness (LOC) - 0(Alert) 1b. Level of Consciousness (LOC) (Month \T\ Age) - 0(Both) 1c. LOC Commands (Open \T\ Closes Eyes/Accelerator Systems Director) - 0(Both) 2. Best Gaze (Lateral Gaze Paresis) - 0(Normal) 3. Visual Field Loss - 0(No visual loss) 4. Facial Palsy - 0(Normal) 5a. Left Arm: Motor (10-second hold) - 0(No drift) 5b. Right Arm: Motor (10-second hold) - 0(No drift) 6a. Left Leg: Motor (5-second hold - always test supine) - 0(No drift) 6b. Right Leg: Motor (5-second hold - always test supine) - 0(No drift) 7. Limb Ataxia (finger/nose \T\ heel/fuentes - test with eyes open) - 0(Absent) 8. Sensory Loss (pinprick arms/legs/face) - 0(Normal) 9. Best Language: Aphasia (description/naming/reading) - 0(No aphasia) Initials: dr5 Signatures: Dispatcher [employer] Ry Vasquez em1 Dayna Connors, VANESA ALEXIS ts1 Gerda Joyce, RN RN kj2 Germania Amezquita RN RN af3 Phoenix Garduno, CHIP MUCKER-C CHIP MUCKER-5
[2025-07-15 12:55] VITALS: BP 128/86; TEMP 98; O2SAT 100
== END 2025-07-15 12:33 | disposition home or self-care (01) ==
LOC: ER 09:52
DX: G43.909 Migraine, unspecified, not intractable, without status migrainosus (principal); I10 Essential (primary) hypertension
CPT/HCPCS: 96361; 93005; 85025; 36415; 84484; 80053; 70450; 96375; 96374; 99284; J2765; J1200; J2405; J7030